=== PATIENT | male | born 1965 | race Caucasian/White ===

== ENCOUNTER → 2020-06-09 | Outpatient (CLI) | payer BC | END | disposition home or self-care (01) | LOC: LABPAT 12:04 | PROVIDERS: ATTEND Student in an Organized Health Care Education/Training Program | DX: Z01.812 Encounter for preprocedural laboratory examination (principal); Z20.822 Contact with and (suspected) exposure to COVID-19; K42.9 Umbilical hernia without obstruction or gangrene; I25.2 Old myocardial infarction; R94.31 Abnormal electrocardiogram [ECG] [EKG] | CPT/HCPCS: 93005; U0003; C9803; U0005 ==

== ENCOUNTER 2020-06-15 09:27 | Day surgery (SDC) | payer BC ==
[2020-06-08 11:32] VITALS: BMI 42.0
[~2020-06-15 09:27] MED LIST: DEXAMETHASONE SOD PHOSPHATE 4 MG/ML 1 ML VIAL IV ONE; HEPARIN SODIUM,PORCINE/PF 5,000 UNIT/0.5 ML SYRINGE SQ PRN; LACTATED RINGERS 1,000 ML IV SCH; LIDOCAINE 1% (10MG/ML) FOR IV START INTRADERMA PRN; METOCLOPRAMIDE 5 MG/ML 2 ML VIAL IVP PRN; SCOPOLAMINE 1.5MG/72HR PATCH TRANSDERM ONE; ceFAZolin 3 GM in SODIUM CHLORIDE 0.9% 100 ML IVPB PRN
[2020-06-15 10:10] LABS: Glucose,Whole Blood 160 mg/dL (75-99)
[2020-06-15] MEDS: ONDANSETRON 4 MG/2 ML VIAL IVP ONE ×2 (10:24→13:07)
[2020-06-15] MEDS ORDERED: MIDAZOLAM 2 MG/2 ML VIAL IVP ONE (10:35)
[2020-06-15] MEDS ORDERED: MIDAZOLAM 2 MG/2 ML VIAL ONE (11:06)
[2020-06-15] MEDS ORDERED: ROPIVACAINE 5 MG/ML 30 ML VIAL ONE (11:06)
[2020-06-15] MEDS ORDERED: ROCURONIUM 10 MG/ML (5 ML VIAL) IV ONE (11:06)
[2020-06-15] MEDS ORDERED: DEXAMETHASONE SOD PHOSPHATE 4 MG/ML 1 ML VIAL ONE (11:06)
[2020-06-15] MEDS ORDERED: GLYCOPYRROLATE 0.2 MG/ML 2 ML VIAL ONE (11:06)
[2020-06-15] MEDS ORDERED: BUPIVACAINE (PF) 0.5% 30 ML VIAL SQ ONE ×4 (11:06→12:19)
[2020-06-15] MEDS ORDERED: KETAMINE 10 MG/ML 20 ML VIAL ONE (11:06)
[2020-06-15] MEDS ORDERED: SUCCINYLCHOLINE CHLORIDE 100 MG/5 ML SYR IV ONE (11:06)
[2020-06-15] MEDS ORDERED: LIDOCAINE 1% INJ 10MG/ML (20 ML MDV) ONE (11:06)
[2020-06-15] MEDS ORDERED: fentaNYL (PF) 50 MCG/ML 2 ML AMP ONE (11:06)
[2020-06-15] MEDS ORDERED: PHENYLEPHRINE-0.9% NACL SYG 1,000 MCG/10 ML SYRINGE ONE (11:06)
[2020-06-15] MEDS ORDERED: KETOROLAC 15 MG/ML 1 ML VIAL ONE (11:06)
[2020-06-15] MEDS ORDERED: NEOSTIGMINE 1 MG/ML 10 ML VIAL ONE (11:06)
[2020-06-15] MEDS ORDERED: PROPOFOL 10 MG/ML 20 ML VIAL IV ONE (11:06)
[2020-06-15 12:45] VITALS: RESP 16; TEMP 97.4
[2020-06-15] MEDS: HYDROmorphone 0.5 MG/0.5 ML SYRINGE IVP PRN ×4 (13:00→13:19)
--- NOTE | 2020-06-15 13:00 | P.ANPRN ---
Procedure Note - Anesthesia - Nerve Block Performed Bilateral Rectus Abdominis Single Time Out Performed: Yes Date of Procedure: 06/15/20 Procedure Start Time: 10:35 Procedure Stop Time: 10:41 Location of Patient: PreOp Indication: Acute Post-Operative Pain, Requested by Surgeon Sedation Type: Sedate with meaningful contact maintained Preparation: Sterile Prep Position: Supine Needle Types: Pajunk Needle Gauge: 21 Ultrasound used to visualize needle placement: Yes Ultrasound used to observe medication spread: Yes Blood Aspirated: No Pain Paresthesia on Injection Noted: No Resistance on Injection: Normal Image Stored and Saved: Yes Events: Uneventful and Well Tolerated (ropi .5% 20cc with dexamethasone 4mg bilaterally)
--- NOTE | 2020-06-15 13:06 | P.OP ---
Date of Procedure: 06/15/20 Preoperative Diagnosis: Recurrent ventral wall hernia Soft tissue mass in the anterior abdominal wall 2 Postoperative Diagnosis: Same Procedure(s) Performed: Robotic repair of recurrent incarcerated ventral hernia and excision of soft tissue mass 2 on the anterior abdominal wall Anesthesia: SHAN Surgeon: Abhi Villareal Estimated Blood Loss (ml): 10 Condition: stable Disposition: PACU Description of Procedure: Patient brought to the operative suite placed in supine position underwent general endotracheal anesthesia per Department of anesthesia timeout performed correct patient correct procedure correct site was verified a 5 mm incision was made at [place] in the left upper quadrant Visiport was used to enter the abdomen an pneumoperitoneum. No injuries were noted the omentum was noted be incarcerated within the ventral wall hernia. 2 more 8 mm ports were placed on the left middle quadrant left lower quadrant. The 5 mm port was upsized to a 12 mm port the robot was docked. The mesh and the 1 Stratta fix suture was placed. The incarcerated omentum was reduced and the defect was closed the defect measured 2 cm. The mesh was tacked to the abdominal wall and sutured circumferentially in place with 3-0 lock sutures. The skeletal frame and the mesh was removed the sutures were removed. The 12 mm port site was closed with 0 Vicryl with the aid of a Huy-Zenon suture passer. The abdomen was desufflated skin incisions were closed with 4-0 Monocryl suture and skin glue. The 2 small subcutaneous soft tissue masses consistent with lipoma were excised approximately 2 cm each on the anterior abdominal wall. These were then closed with 4-0 Monocryl suture. Skin glue. Patient tolerated the procedure well no apparent complications Plan - Discharge Summary Discharge Rx Participant: No New Discharge Prescriptions: No Action Cholecalciferol [Vitamin D3 (25 Mcg = 1000 Iu)] 25 mcg PO DAILY Pioglitazone [Actos] 15 mg PO 1800 Zinc 100 mg PO DAILY metFORMIN HCL [Glucophage] 500 mg PO 1800 glipiZIDE [Glucotrol] 5 mg PO -BRKT Discharge Medication List Cholecalciferol [Vitamin D3 (25 Mcg = 1000 Iu)] 25 mcg PO DAILY 06/08/20 [History] Pioglitazone [Actos] 15 mg PO 1800 06/08/20 [History] Zinc 100 mg PO DAILY 06/08/20 [History] metFORMIN HCL [Glucophage] 500 mg PO 1800 06/08/20 [History] glipiZIDE [Glucotrol] 5 mg PO AC-BRKFST 06/11/20 [History]
[2020-06-15 13:08] LABS: Glucose,Whole Blood 249 mg/dL (75-99)
[2020-06-15] MEDS ORDERED: SODIUM CHLORIDE 0.9% 1,000 ML IV ONE (13:09)
[2020-06-15] MEDS ORDERED: MEPERIDINE 50 MG/ML SYRINGE IVP ONE (13:32)
[2020-06-15] MEDS ORDERED: INSULIN ASPART (NovoLOG) 100 UNIT/ML VIAL SQ ONE (13:40)
[2020-06-15] MEDS ORDERED: HYDROcodone/APAP 5-325MG 1 EACH TAB ONE (14:27)
[2020-06-15 14:41] VITALS: BP 103/67; PULSE 89
== END 2020-06-15 15:09 | disposition home or self-care (01) ==
LOC: OR 09:27
PROVIDERS: ATTEND Student in an Organized Health Care Education/Training Program
DX: K43.0 Incisional hernia with obstruction, without gangrene (principal); D17.1 Benign lipomatous neoplasm of skin and subcutaneous tissue of trunk; E11.9 Type 2 diabetes mellitus without complications; I10 Essential (primary) hypertension; Z82.49 Family history of ischemic heart disease and other diseases of the circulatory system; Z83.3 Family history of diabetes mellitus; Z98.890 Other specified postprocedural states; E07.9 Disorder of thyroid, unspecified; E66.01 Morbid (severe) obesity due to excess calories; Z68.41 Body mass index [BMI] 40.0-44.9, adult; Z79.84 Long term (current) use of oral hypoglycemic drugs
CPT/HCPCS: 22902; 49653; S2900; 64488; 88304

== ENCOUNTER → 2021-01-19 | Outpatient (CLI) | payer BC | END | disposition home or self-care (01) | LOC: LABWHC1 12:37 | PROVIDERS: ATTEND Family Medicine | DX: Z20.828 Contact with and (suspected) exposure to other viral communicable diseases (principal) | CPT/HCPCS: U0003; C9803 ==

== ENCOUNTER 2021-01-26 00:29 | Emergency (ER) | payer BC ==
[2021-01-26 01:01] VITALS: RESP 20
[2021-01-26] MEDS ORDERED: dexAMETHasone 2 MG TAB PO STA (01:26)
--- NOTE | 2021-01-26 02:05 | XR ---
EXAMINATION TYPE: XR chest 2V DATE OF EXAM: 01/26/2021 COMPARISON: 10/22/2014 HISTORY: Trauma. Pain TECHNIQUE: 2 views FINDINGS: There is no heart failure nor confluent pneumonic infiltrate. Costophrenic angles are clear . There is some coarsening of the lung markings at the lung bases. There are no hilar masses. There i s no pneumothorax. Trachea is midline. IMPRESSION: There is some mild interstitial density and subsegmental atelectasis at the lung bases wh ich appears new compared to old exam. Normal heart.
--- NOTE | 2021-01-26 02:33 | ED ---
URI HPI - General Chief Complaint: Upper Respiratory Infection Stated Complaint: covid+/ antibodies Time Seen by Provider: 01/26/21 01:07 Source: patient Mode of arrival: ambulatory Limitations: no limitations - History of Present Illness Initial Comments: 55-year-old male patient presents to the emergency department today requesting monoclonal antibodies after testing positive for COVID-19. States he tested positive on 01/14/21. This started having symptoms approximately a day or 2 prior to that. States that he feels like he is improving however he still report significant cough and becomes fatigued very easily with activity. He was instructed by his physician to come in for the antibody infusion. He does have history of diabetes, takes oral medications. He denies any shortness of breath, sputum production with this cough, or hemoptysis. Denies any nausea or vomiting. States he does have decreased appetite. - Related Data Home Medications Medication Instructions Recorded Confirmed Cholecalciferol [Vitamin D3 (25 25 mcg PO DAILY 06/08/20 06/08/20 Mcg = 1000 Iu)] Pioglitazone [Actos] 15 mg PO 1800 06/08/20 06/08/20 Zinc 100 mg PO DAILY 06/08/20 06/08/20 metFORMIN HCL [Glucophage] 500 mg PO 1800 06/08/20 06/08/20 glipiZIDE [Glucotrol] 5 mg PO AC-BRKFST 06/11/20 06/11/20 Previous Rx's Medication Instructions Recorded Docusate [Colace] 100 mg PO DAILY #10 capsule 06/15/20 HYDROcodone/APAP 5-325MG [[place] 1 tab PO Q6HR PRN 3 Days #12 tab 06/15/20 5-325] Dexamethasone 6 mg PO DAILY #9 tablet 01/26/21 Allergies Allergy/AdvReac Type Severity Reaction Status Date / Time No Known Allergies Allergy Verified 01/26/21 01:00 Review of Systems ROS Statement: Those systems with pertinent positive or pertinent negative responses have been documented in the HPI. ROS Other: All systems not noted in ROS Statement are negative. Past Medical History Past Medical History: Diabetes Mellitus, Hyperlipidemia, Hypertension, Osteoarthritis (OA) Additional Past Medical History / Comment(s): MIGRAINES, "borderline high BP"-no rx, arthritis in hands, History of Any Multi-Drug Resistant Organisms: None Reported Past Surgical History: Hernia Repair, Tonsillectomy Additional Past Surgical History / Comment(s): umbilical hernia repair, sinus polypectomy x2, Past Anesthesia/Blood Transfusion Reactions: Family History of Problems w/ Anesthesia Additional Past Anesthesia/Blood Transfusion Reaction / Comment(s): mother- problems with high BP/breathing problerms Past Psychological History: No Psychological Hx Reported Smoking Status: Never smoker Past Alcohol Use History: None Reported Past Drug Use History: None Reported - Past Family History Father Family Medical History: Cancer General Exam Limitations: no limitations General appearance: alert, in no apparent distress, other (This is a well- developed, well-nourished adult male in no acute distress.) Respiratory exam: Present: normal lung sounds bilaterally. Absent: respiratory distress, wheezes, rales, rhonchi, stridor Cardiovascular Exam: Present: regular rate, normal rhythm, normal heart sounds. Absent: systolic murmur, diastolic murmur, rubs, gallop, clicks GI/Abdominal exam: Present: soft, normal bowel sounds. Absent: distended, tenderness, guarding, rebound, rigid Neurological exam: Present: alert, oriented X3, CN II-XII intact Psychiatric exam: Present: normal affect, normal mood Skin exam: Present: warm, dry, intact, normal color. Absent: rash Course Vital Signs 01/26/21 01/26/21 00:57 02:50 Temperature 98.0 F 97.8 F Pulse Rate 86 82 Respiratory 20 20 Rate Blood Pressure 133/87 150/94 O2 Sat by Pulse 95 98 Oximetry Medical Decision Making - Medical Decision Making 55-year-old male patient presents sent in by his physician for monoclonal antibody infusion. Patient has been symptom positive for the last 12 days. Therefore he is out of range for criteria for the monoclonal antibody infusion. Chest x-ray did show mild interstitial densities in the lower lobes. Oxygen saturation 95% on room air. Other vital signs are normal. He is breathing without difficulty. He'll be put on dexamethasone for his cough. He is discharged to follow-up with his primary care physician for recheck in 1-2 days. Return parameters were discussed in detail. He verbalizes understanding and agrees with this plan. Case discussed with my attending Dr. Hdez. - Radiology Data Radiology results: report reviewed, image reviewed Two-view x-ray of the chest is obtained. Report was reviewed in its entirety. Impression by Dr. Sánchez shows mild interstitial density and subsegmental atelectasis at the lung bases which appears new compared to old exam. Normal heart. Disposition Clinical Impression: COVID-19 Disposition: HOME SELF-CARE Condition: Good Instructions (If sedation given, give patient instructions): Coronavirus Disease 2019 (COVID-19) Additional Instructions: Take medications as directed. Follow up with your primary care physician for recheck in 1-2 days. Return for any new, worsening, or concerning symptoms. Prescriptions: Dexamethasone 6 mg PO DAILY #9 tablet Is patient prescribed a controlled substance at d/c from ED?: No Referrals: Immanuel Clement MD [Primary Care Provider] - 1-2 days Time of Disposition: 02:33
[2021-01-26 03:02] VITALS: BP 150/94; PULSE 82; TEMP 97.8
== END 2021-01-26 02:50 | disposition home or self-care (01) ==
LOC: EC 00:29
DX: U07.1 COVID-19 (principal); E11.9 Type 2 diabetes mellitus without complications; I10 Essential (primary) hypertension; M19.90 Unspecified osteoarthritis, unspecified site; Z79.899 Other long term (current) drug therapy; Z79.84 Long term (current) use of oral hypoglycemic drugs
CPT/HCPCS: 71046; 99283; J8540

== ENCOUNTER 2022-11-08 20:27 | Observation (INO) | payer BC ==
[2022-11-08 20:53] LABS: Basophils # (A) 0.1 k/uL (0-0.2); Basophils % (A) 1 %; Eosinophils # (A) 0.2 k/uL (0-0.7); Eosinophils % (A) 3 %; HGB 13.6 gm/dL (13.0-17.5); Lymphocytes # (A) 1.5 k/uL (1.0-4.8); Lymphocytes % (A) 17 %; MCH 26.6 pg (25.0-35.0); MCHC 32.5 g/dL (31.0-37.0); MCV 82.1 fL (80.0-100.0); Mean Platelet Volume 8.1; Monocytes # (A) 0.6 k/uL (0-1.0); Monocytes % (A) 7 %; Neutrophils # (A) 6.6 k/uL (1.3-7.7); Neutrophils % (A) 72 %; Platelet Count 198 k/uL (150-450); RBC 5.12 m/uL (4.30-5.90); RDW 13.5 % (11.5-15.5); WBC 9.1 k/uL (3.8-10.6)
[2022-11-08 21:01] LABS: INR 1.1 (<1.2); Partial Thromboplastin Time 25.6 sec (22.0-30.0); Prothrombin Time 11.3 sec (9.0-12.0)
[2022-11-08 21:19] LABS: ALT 20 U/L (4-49); AST 23 U/L (17-59); African American GFR (CKD) >90 (>60 ml/min/1.73 sqM); Albumin 3.6 g/dL (3.5-5.0); Alkaline Phosphatase 80 U/L (38-126); Anion Gap 4 mmol/L; Blood Urea Nitrogen 22 mg/dL (9-20); Calcium 9.2 mg/dL (8.4-10.2); Carbon Dioxide 30 mmol/L (22-30); Chloride 101 mmol/L (98-107); Glucose 311 mg/dL (74-99); Non-African American GFR(CKD) >90 (>60 ml/min/1.73 sqM); Potassium 4.5 mmol/L (3.5-5.1); Sodium 135 mmol/L (137-145); Total Bilirubin 1.1 mg/dL (0.2-1.3); Total Protein 6.2 g/dL (6.3-8.2)
--- NOTE | 2022-11-08 21:48 | ED ---
General Adult HPI - General Chief complaint: Shortness of Breath Stated complaint: SOB Time Seen by Provider: 11/08/22 21:23 Source: patient Mode of arrival: wheelchair Limitations: no limitations - History of Present Illness Initial comments: Dictation was produced using [employer] dictation software. please excuse any grammatical, word or spelling errors. Chief Complaint: 57-year-old male presents to the ER for shortness breath History of Present Illness: Patient is a 57-year-old male presents 1 week of shortness of breath. Patient states that shortness of breath is apparent with lying flat and exertion. Denies any chest pain. No abdominal pain he hasn't mild nonproductive cough for last 48 hours. No obvious sick contacts. Patient states he has chronic swelling to the legs. No history of DVT or PE The ROS documented in this emergency department record has been reviewed and confirmed by me. Those systems with pertinent positive or negative responses have been documented in the HPI. All other systems are other negative and/or noncontributory. - Related Data Home Medications Medication Instructions Recorded Confirmed Cholecalciferol [Vitamin D3 (25 25 mcg PO DAILY 06/08/20 06/08/20 Mcg = 1000 Iu)] Pioglitazone [Actos] 15 mg PO 1800 06/08/20 06/08/20 Zinc 100 mg PO DAILY 06/08/20 06/08/20 metFORMIN HCL [Glucophage] 500 mg PO 1800 06/08/20 06/08/20 glipiZIDE [Glucotrol] 5 mg PO AC-BRKFST 06/11/20 06/11/20 Previous Rx's Medication Instructions Recorded Docusate [Colace] 100 mg PO DAILY #10 capsule 06/15/20 HYDROcodone/APAP 5-325MG [[place] 1 tab PO Q6HR PRN 3 Days #12 tab 06/15/20 5-325] dexAMETHasone [Dexamethasone] 6 mg PO DAILY #9 tablet 01/26/21 Allergies Allergy/AdvReac Type Severity Reaction Status Date / Time No Known Allergies Allergy Verified 11/08/22 20:34 Review of Systems ROS Statement: Those systems with pertinent positive or pertinent negative responses have been documented in the HPI. ROS Other: All systems not noted in ROS Statement are negative. Past Medical History Past Medical History: Diabetes Mellitus, Hyperlipidemia, Hypertension, Osteoarthritis (OA) Additional Past Medical History / Comment(s): MIGRAINES, "borderline high BP"-no rx, arthritis in hands, History of Any Multi-Drug Resistant Organisms: None Reported Past Surgical History: Hernia Repair, Tonsillectomy Additional Past Surgical History / Comment(s): umbilical hernia repair, sinus polypectomy x2, Past Anesthesia/Blood Transfusion Reactions: Family History of Problems w/ Anesthesia Additional Past Anesthesia/Blood Transfusion Reaction / Comment(s): mother- problems with high BP/breathing problerms Past Psychological History: No Psychological Hx Reported Smoking Status: Never smoker Past Alcohol Use History: None Reported Past Drug Use History: None Reported - Past Family History Father Family Medical History: Cancer General Exam - General Exam Comments Initial Comments: PHYSICAL EXAM: General Impression: Alert and oriented x3, not in acute distress HEENT: Normocephalic atraumatic, extra-ocular movements intact, pupils equal and reactive to light bilaterally, mucous membranes moist. Cardiovascular: Heart regular rate and rhythm Chest: Able to complete full sentences, no retractions, no tachypnea Abdomen: abdomen soft, non-tender, non-distended, no organomegaly Musculoskeletal: Pulses present and equal in all extremities, no peripheral edema Motor: no focal deficits noted Neurological: CN II-XII grossly intact, no focal motor or sensory deficits noted Skin: Intact with no visualized rashes Psych: Normal affect and mood Limitations: no limitations Course Vital Signs 11/08/22 11/08/22 11/09/22 20:32 23:34 00:10 Temperature 97.8 F Pulse Rate 68 78 80 Respiratory 22 18 18 Rate Blood Pressure 119/76 134/77 124/89 O2 Sat by Pulse 97 99 99 Oximetry EKG Findings - EKG Comments: EKG Findings:: My EKG interpretation: Ventricular rate 80, sinus rhythm,. 154, QRS 133, QTC 421, IV conduction delay. No [place] prolongation, no QTC prolongation, no ST or T-wave changes noted. Overall, this EKG is unremarkable Medical Decision Making - Medical Decision Making Was pt. sent in by a medical professional or institution (, PA, DOCUMENTATION CONSULTANT, urgent care, hospital, or care home...) When possible be specific @ -No Did you speak to anyone other than the patient for history (EMS, parent, family, police, friend...)? What history was obtained from this source @ -No Did you review nursing and triage notes (agree or disagree)? Why? @ -I reviewed and agree with nursing and triage notes Were old charts reviewed (outside hosp., previous admission, EMS record, old EKG, old radiological studies, urgent care reports/EKG's, care home records)? Report findings @ -No old charts were reviewed Differential Diagnosis (chest pain, altered mental status, abdominal pain women, abdominal pain men, vaginal bleeding, musculoskeletal, weakness, fever, dyspnea, syncope, headache, dizziness, GI bleed, back pain, seizure, CVA, palpatations, mental health)? @ -Differential Dyspnea: Coronary syndrome, arrhythmia, tamponade, asthma, COPD, pulmonary embolism, pneumonia, pneumothorax, pulmonary effusion, anaphylaxis, diabetic ketoacidosis, flailed chest, pulmonary contusion, diaphragmatic rupture, anemia, neuromuscular, this is not meant to be an all-inclusive list. EKG interpreted by me (3pts min.). @ -See above X-rays interpreted by me (1pt min.). @ -chest x-ray shows small pleural effusion CT interpreted by me (1pt min.). @ -CT angiography of the chest ordered for elevated d-dimer shows no pulmonary embolism U/S interpreted by me (1pt. min.). @ -None done What testing was considered but not performed or refused? (CT, X-rays, U/S, labs)? Why? @ -None What meds were considered but not given or refused? Why? @ -None Did you discuss the management of the patient with other professionals (professionals i.e. , PA, DOCUMENTATION CONSULTANT, lab, RT, psych nurse, rn social services, pin sorter and bagger, teacher, forward air controller/air officer, outpatient case manager)? Give summary @ -Discussed with hospitalist for admission Was smoking cessation discussed for >3mins.? @ -No Was critical care preformed (if so, how long)? @ -No Were there social determinants of health that impacted care today? How? (Homelessness, low income, unemployed, alcoholism, drug addiction, transportation, low edu. Level, literacy, decrease access to med. care, senior living, rehab)? @ -No Was there de-escalation of care discussed even if they declined (Discuss DNR or withdrawal of care, Hospice)? DNR status @ -No What co-morbidities impacted this encounter? (DM, HTN, Smoking, COPD, CAD, Cancer, CVA, ARF, Chemo, Hep., AIDS, mental health diagnosis, sleep apnea, morbid obesity)? @ -None Was patient admitted / discharged? Hospital course, mention meds given and rout e, prescriptions, significant lab abnormalities, going to OR and other pertinent info. @ -57 Year-old male presents with symptoms suspicious for new onset heart failure. Vital signs stable. Patient is well-appearing no acute distress. Labs shows elevated d-dimer of 0.98. No PE on CT angiography. Brain natruretic peptide elevated at 949 with troponin of 0.0156 asymptomatic for chest pain. Vital testing is negative. Patient given aspirin. There is suspicion of new onset cardiomyopathy. Patient be admitted observation consultation and cardiology. Undiagnosed new problem with uncertain prognosis? @ -No Drug Therapy requiring intensive monitoring for toxicity (Heparin, Nitro, Insulin, Cardizem)? @ -No Were any procedures done? @ -No Diagnosis/symptom? Acute, or Chronic, or Acute on Chronic? Uncomplicated (without systemic symptoms) or Complicated (systemic symptoms)? @ -New onset heart failure Side effects of treatment? @ -No Exacerbation, Progression, or Severe Exacerbation? @ -No Poses a threat to life or bodily function? How? (Chest pain, [place], [place], pneumonia, PE, COPD, DKA, ARF, appy, cholecystitis, CVA, Diverticulitis, Homicidal, Suicidal, threat to staff... and all critical care pts) @ -yes - Lab Data Result diagrams: 11/08/22 20:42 11/08/22 20:42 Lab Results 11/08/22 11/08/22 11/08/22 Range/Units 20:42 20:42 20:42 WBC 9.1 (3.8-10.6) k/uL RBC 5.12 (4.30-5.90) m/uL Hgb 13.6 (13.0-17.5) gm/dL Hct 42.0 (39.0-53.0) % MCV 82.1 (80.0-100.0) fL MCH 26.6 (25.0-35.0) pg MCHC 32.5 (31.0-37.0) g/dL RDW 13.5 (11.5-15.5) % Plt Count 198 (150-450) k/uL MPV 8.1 Neutrophils % 72 % Lymphocytes % 17 % Monocytes % 7 % Eosinophils % 3 % Basophils % 1 % Neutrophils # 6.6 (1.3-7.7) k/uL Lymphocytes # 1.5 (1.0-4.8) k/uL Monocytes # 0.6 (0-1.0) k/uL Eosinophils # 0.2 (0-0.7) k/uL Basophils # 0.1 (0-0.2) k/uL PT 11.3 (9.0-12.0) sec INR 1.1 (<1.2) APTT 25.6 (22.0-30.0) sec D-Dimer (<0.60) mg/L FEU Sodium 135 L (137-145) mmol/L Potassium 4.5 (3.5-5.1) mmol/L Chloride 101 (98-107) mmol/L Carbon Dioxide 30 (22-30) mmol/L Anion Gap 4 mmol/L BUN 22 H (9-20) mg/dL Creatinine 0.74 (0.66-1.25) mg/dL Est GFR (CKD-EPI)AfAm >90 (>60 ml/min/1.73 sqM) Est GFR (CKD-EPI)NonAf >90 (>60 ml/min/1.73 sqM) Glucose 311 H (74-99) mg/dL Calcium 9.2 (8.4-10.2) mg/dL Total Bilirubin 1.1 (0.2-1.3) mg/dL AST 23 (17-59) U/L ALT 20 (4-49) U/L Alkaline Phosphatase 80 (38-126) U/L Troponin I (0.000-0.034) ng/mL NT-Pro-B Natriuret Pep pg/mL Total Protein 6.2 L (6.3-8.2) g/dL Albumin 3.6 (3.5-5.0) g/dL Influenza Type A (PCR) (Not Detectd) Influenza Type B (PCR) (Not Detectd) RSV (PCR) (Not Detectd) SARS-CoV-2 (PCR) (Not Detectd) 11/08/22 11/08/22 11/08/22 Range/Units 20:42 21:55 21:55 WBC (3.8-10.6) k/uL RBC (4.30-5.90) m/uL Hgb (13.0-17.5) gm/dL Hct (39.0-53.0) % MCV (80.0-100.0) fL MCH (25.0-35.0) pg MCHC (31.0-37.0) g/dL RDW (11.5-15.5) % Plt Count (150-450) k/uL MPV Neutrophils % % Lymphocytes % % Monocytes % % Eosinophils % % Basophils % % Neutrophils # (1.3-7.7) k/uL Lymphocytes # (1.0-4.8) k/uL Monocytes # (0-1.0) k/uL Eosinophils # (0-0.7) k/uL Basophils # (0-0.2) k/uL PT (9.0-12.0) sec INR (<1.2) APTT (22.0-30.0) sec D-Dimer 0.98 H (<0.60) mg/L FEU Sodium (137-145) mmol/L Potassium (3.5-5.1) mmol/L Chloride (98-107) mmol/L Carbon Dioxide (22-30) mmol/L Anion Gap mmol/L BUN (9-20) mg/dL Creatinine (0.66-1.25) mg/dL Est GFR (CKD-EPI)AfAm (>60 ml/min/1.73 sqM) Est GFR (CKD-EPI)NonAf (>60 ml/min/1.73 sqM) Glucose (74-99) mg/dL Calcium (8.4-10.2) mg/dL Total Bilirubin (0.2-1.3) mg/dL AST (17-59) U/L ALT (4-49) U/L Alkaline Phosphatase (38-126) U/L Troponin I 0.015 (0.000-0.034) ng/mL NT-Pro-B Natriuret Pep 949 pg/mL Total Protein (6.3-8.2) g/dL Albumin (3.5-5.0) g/dL Influenza Type A (PCR) (Not Detectd) Influenza Type B (PCR) (Not Detectd) RSV (PCR) (Not Detectd) SARS-CoV-2 (PCR) (Not Detectd) 11/08/22 Range/Units 22:36 WBC (3.8-10.6) k/uL RBC (4.30-5.90) m/uL Hgb (13.0-17.5) gm/dL Hct (39.0-53.0) % MCV (80.0-100.0) fL MCH (25.0-35.0) pg MCHC (31.0-37.0) g/dL RDW (11.5-15.5) % Plt Count (150-450) k/uL MPV Neutrophils % % Lymphocytes % % Monocytes % % Eosinophils % % Basophils % % Neutrophils # (1.3-7.7) k/uL Lymphocytes # (1.0-4.8) k/uL Monocytes # (0-1.0) k/uL Eosinophils # (0-0.7) k/uL Basophils # (0-0.2) k/uL PT (9.0-12.0) sec INR (<1.2) APTT (22.0-30.0) sec D-Dimer (<0.60) mg/L FEU Sodium (137-145) mmol/L Potassium (3.5-5.1) mmol/L Chloride (98-107) mmol/L Carbon Dioxide (22-30) mmol/L Anion Gap mmol/L BUN (9-20) mg/dL Creatinine (0.66-1.25) mg/dL Est GFR (CKD-EPI)AfAm (>60 ml/min/1.73 sqM) Est GFR (CKD-EPI)NonAf (>60 ml/min/1.73 sqM) Glucose (74-99) mg/dL Calcium (8.4-10.2) mg/dL Total Bilirubin (0.2-1.3) mg/dL AST (17-59) U/L ALT (4-49) U/L Alkaline Phosphatase (38-126) U/L Troponin I (0.000-0.034) ng/mL NT-Pro-B Natriuret Pep pg/mL Total Protein (6.3-8.2) g/dL Albumin (3.5-5.0) g/dL Influenza Type A (PCR) Not Detected (Not Detectd) Influenza Type B (PCR) Not Detected (Not Detectd) RSV (PCR) Not Detected (Not Detectd) SARS-CoV-2 (PCR) Not Detected (Not Detectd) Disposition Clinical Impression: Congestive heart failure Disposition: ADMITTED IP TO THIS [facility] Condition: Fair Referrals: Lev Clement MD [STAFF PHYSICIAN] - 1-2 days Decision Time: 01:02
--- NOTE | 2022-11-08 22:13 | XR ---
EXAMINATION TYPE: XR chest 2V DATE OF EXAM: 11/08/2022 COMPARISON: 01/26/2021 INDICATION: Difficulty breathing TECHNIQUE: Frontal and lateral views of the chest are obtained. FINDINGS: The heart size is normal. The pulmonary vasculature is normal. Minimal bibasilar infiltrates are present. Correlate for subsegmental atelectasis. Small posterior pl eural effusion is present. Follow-up can be performed as clinically indicated.. IMPRESSION: 1. Small posterior pleural effusion with mild subsegmental atelectasis bilateral lung bases.
--- NOTE | 2022-11-08 23:29 | CT ---
EXAM: CT Angiography Chest With Intravenous Contrast CLINICAL HISTORY: ITS.REASON CT Reason: positive D-dimer TECHNIQUE: Axial computed tomographic angiography images of the chest with intravenous contrast. CTDI is 41.28 mGy and DLP is 1239.4 mGy-cm. This CT exam was performed using one or more of the following dose reduction techniques: automated exposure control, adjustment of the mA and/or kV according to patient size, and/or use of iterative reconstruction technique. MIP reconstructed images were created and reviewed. COMPARISON: No relevant prior studies available. FINDINGS: Pulmonary arteries: Unremarkable. No acute pulmonary embolism. Aorta: No acute findings. No thoracic aortic aneurysm. Lungs: Unremarkable. No mass. No consolidation. Pleural space: Small bilateral pleural effusions. No pneumothorax. Heart: Mild cardiomegaly. No significant pericardial effusion. No evidence of RV dysfunction. Bones/joints: No acute fracture. No dislocation. Soft tissues: Unremarkable. Lymph nodes: Unremarkable. No enlarged lymph nodes. Liver: Hepatic steatosis. Gallbladder and bile ducts: Mild wall thickening of the gallbladder. IMPRESSION: 1. No acute pulmonary embolism. 2. Small bilateral pleural effusions. 3. Hepatic steatosis.
[2022-11-09] MEDS ORDERED: NALOXONE 0.4 MG/ML 1 ML VIAL IV PRN (00:57)
[2022-11-09] MEDS ORDERED: ASPIRIN 81 MG PO STA (01:02)
[2022-11-09] MEDS: SODIUM CHLORIDE 0.9% 1,000 ML IV SCH (01:13)
[2022-11-09] MEDS ORDERED: DEXTROSE 50% SYRINGE 50 ML IVP PRN ×2 (09:50)
[2022-11-09] MEDS: metFORMIN 500 MG TAB PO SCH (10:12)
[2022-11-09 12:13] LABS: Glucose,Whole Blood 219 mg/dL (70-110)
[2022-11-09] MEDS: INSULIN ASPART (NovoLOG) 100 UNIT/ML VIAL SQ SCH ×3 (12:36→21:42)
--- NOTE | 2022-11-09 12:47 | P.HPIM ---
History of Present Illness H&P Date: 11/09/22 Chief Complaint: Shortness of breath * 57-year-old gentleman with past medical history significant for diabetes mellitus type 2, hypertension, hyperlipidemia presented to the emergency department with complaints of ongoing shortness of breath * Patient states her symptom onset has been for for the last 1 week. Patient has been complaining of exertional shortness of breath. He denied chest pain, denies fever, chills, chest nausea, vomiting abdominal pain * Review of blood work in ER included normal CBC, d-dimer 0.98, CT chest done negative for pulmonary embolism * Serum chemistry showed sodium 135 potassium 4.5 BUN 22 creatinine 0.74 blood glucose 311 * Patient tested negative for Covid, influenza * N-terminal proBNP 949 * EKG obtained in ER showed sinus rhythm nonspecific ST segment changes * Patient to be admitted to medical floor and workup initiated including serial troponins and echocardiogram and cardiology consult REVIEW OF SYSTEMS: Shortness of breath CONSTITUTIONAL: No fever, no malaise, no fatigue. HEENT: No recent visual problems or hearing problems. Denied any sore throat. CARDIOVASCULAR: No chest pain, orthopnea, PND, no palpitations, no syncope. PULMONARY: No shortness of breath, no cough, no hemoptysis. GASTROINTESTINAL: No diarrhea, no nausea, no vomiting, no abdominal pain. NEUROLOGICAL: No headaches, no weakness, no numbness. HEMATOLOGICAL: Denies any bleeding or petechiae. GENITOURINARY: Denies any burning micturition, frequency, or urgency. MUSCULOSKELETAL/RHEUMATOLOGICAL: Denies any joint pain, swelling, or any muscle pain. ENDOCRINE: Denies any polyuria or polydipsia. PHYSICAL EXAMINATION: GENERAL: The patient is alert and oriented x3, not in any acute distress. Well developed, well nourished. HEENT: Pupils are round and equally reacting to light. EOMI. No scleral icterus. No conjunctival pallor. Normocephalic, atraumatic. No pharyngeal erythema. No thyromegaly. CARDIOVASCULAR: S1 and S2 present. No murmurs, rubs, or gallops. Bilateral leg edema PULMONARY: Chest is clear to auscultation, no wheezing or crackles. ABDOMEN: Soft, nontender, nondistended, normoactive bowel sounds. No palpable organomegaly. MUSCULOSKELETAL: No joint swelling or deformity. EXTREMITIES: No cyanosis, clubbing, or pedal edema. NEUROLOGICAL: Gross neurological examination did not reveal any focal deficits. SKIN: No rashes. Past Medical History Past Medical History: Diabetes Mellitus, Hyperlipidemia, Hypertension, Osteoarthritis (OA) Additional Past Medical History / Comment(s): MIGRAINES, "borderline high BP"-no rx, arthritis in hands, History of Any Multi-Drug Resistant Organisms: None Reported Past Surgical History: Hernia Repair, Tonsillectomy Additional Past Surgical History / Comment(s): umbilical hernia repair, sinus polypectomy x2, Past Anesthesia/Blood Transfusion Reactions: Family History of Problems w/ Anesthesia Additional Past Anesthesia/Blood Transfusion Reaction / Comment(s): mother- problems with high BP/breathing problerms Past Psychological History: No Psychological Hx Reported Smoking Status: Never smoker Past Alcohol Use History: None Reported Past Drug Use History: None Reported - Past Family History Father Family Medical History: Cancer Medications and Allergies Home Medications Medication Instructions Recorded Confirmed Type Pioglitazone [Actos] 15 mg PO DIRECTED 11/09/22 11/09/22 History glipiZIDE [Glucotrol] 5 mg PO DIRECTED 11/09/22 11/09/22 History metFORMIN HCL [Glucophage] 500 mg PO DIRECTED 11/09/22 11/09/22 History Allergies Allergy/AdvReac Type Severity Reaction Status Date / Time No Known Allergies Allergy Verified 11/08/22 20:34 Physical Exam Vitals: Vital Signs Temp Pulse Resp BP Pulse Ox 11/09/22 07:50 72 18 135/91 98 11/09/22 01:16 66 18 127/87 95 11/09/22 00:10 80 18 124/89 99 11/08/22 23:34 78 18 134/77 99 11/08/22 20:32 97.8 F 68 22 119/76 97 Intake and Output 11/08/22 11/09/22 11/09/22 22:59 06:59 14:59 Other: Weight 138.346 kg Results CBC & Chem 7: 11/08/22 20:42 11/08/22 20:42 Labs: Abnormal Lab Results - Last 24 Hours (Table) 11/08/22 11/08/22 Range/Units 20:42 21:55 D-Dimer 0.98 H (<0.60) mg/L FEU Sodium 135 L (137-145) mmol/L BUN 22 H (9-20) mg/dL Glucose 311 H (74-99) mg/dL Total Protein 6.2 L (6.3-8.2) g/dL Assessment and Plan Assessment: Assessment and plan * Shortness of breath rule out ACS versus new onset CHF * Diabetes mellitus type 2 * Morbid obesity * Consult obtained from cardiology * Serial troponins ordered, echocardiogram ordered * CT chest negative for pulmonary embolism * In regards to diabetes, Accu-Cheks before meals at bedtime continue metformin, correctional insulin ordered * CODE STATUS is full code
[2022-11-09 17:26] LABS: Glucose,Whole Blood 251 mg/dL (70-110)
[2022-11-09 20:47] LABS: Glucose,Whole Blood 232 mg/dL (70-110)
[2022-11-10] MEDS: SODIUM CHLORIDE 0.9% 1,000 ML IV SCH ×2 (01:19→23:46)
[2022-11-10 06:36] LABS: Glucose,Whole Blood 179 mg/dL (70-110)
[2022-11-10] MEDS: INSULIN ASPART (NovoLOG) 100 UNIT/ML VIAL SQ SCH ×4 (06:39→20:54)
--- NOTE | 2022-11-10 07:34 | CA ---
Transthoracic Echo Report Name: Carlo Mccormack Age: 57 Gender: M : 1965 Exam Date: 11/09/2022 14:21 Exam Location: [place] [facility] Ht (in): 71 Wt (lb): 305 Ordering Physician: Jo-Ann Ruelas MD Attending/Referring Phys: Puppet Maker Jesi Valles [facility] Procedure CPT: Indications: Heart failure Cardiac Hx: Technical Quality: Technically difficult study Contrast 1: Lumason Total Dose (mL): 5 Contrast 2: Total Dose (mL): MEASUREMENTS (Male / Female) Normal Values 2D ECHO LV Diastolic Diameter PLAX 6.6 cm 4.2 - 5.9 / 3.9 - 5.3 cm LV Systolic Diameter PLAX 5.9 cm IVS Diastolic Thickness 0.8 cm 0.6 - 1.0 / 0.6 - 0.9 cm LVPW Diastolic Thickness 0.9 cm 0.6 - 1.0 / 0.6 - 0.9 cm LV Relative Wall Thickness 0.3 LVOT Diameter 2.0 cm Ascending Aorta Diameter 3.4 cm M-MODE Aortic Root Diameter MM 2.3 cm LA Systolic Diameter MM 5.4 cm LA Ao Ratio MM 2.4 AV Cusp Separation MM 2.1 cm DOPPLER AV Peak Velocity 143.3 cm/s AV Peak Gradient 8.2 mmHg AV Mean Velocity 99.5 cm/s AV Mean Gradient 4.4 mmHg AV Velocity Time Integral 25.7 cm LVOT Peak Velocity 111.3 cm/s LVOT Peak Gradient 5.0 mmHg LVOT Velocity Time Integral 17.9 cm LVOT Stroke Volume 58.6 cm??? LVOT Stroke Volume Index 23.2 ml/m??? LVOT Cardiac Index 1825.7 cm???/min???m??? AV Area Cont Eq vti 2.3 cm??? AV Area Cont Eq pk 2.5 cm??? MV Peak Velocity 132.0 cm/s MV Peak Gradient 7.0 mmHg MV Mean Velocity 83.6 cm/s MV Mean Gradient 3.3 mmHg MV Velocity Time Integral 33.2 cm MR Peak Velocity 506.5 cm/s MR Peak Gradient 102.6 mmHg Mitral E Point Velocity 110.7 cm/s Mitral A Point Velocity 55.4 cm/s Mitral E to A Ratio 2.0 MV Deceleration Time 143.7 ms LV E' Lateral Velocity 11.2 cm/s Mitral E to LV E' Lateral Ratio 9.9 LV E' Septal Velocity 5.1 cm/s Mitral E to LV E' Septal Ratio 21.9 TR Peak Velocity 414.8 cm/s TR Peak Gradient 68.8 mmHg Right Atrial Pressure 15.0 mmHg Pulmonary Artery Systolic Pressu 83.8 mmHg Right Ventricular Systolic Press 73.8 mmHg FINDINGS Left Ventricle Severely reduced global left ventricular systolic function. Estimated ejection fraction 25-30 %. Dilated left ventricle Right Ventricle Severe right ventricular dilatation. Mildly reduced right ventricular global systolic function. Severe pulmonary hypertension. Right Atrium Severe right atrial dilatation. Left Atrium Severe left atrial dilatation. Mitral Valve Structurally normal mitral valve. Severe mitral regurgitation. Aortic Valve Trileaflet aortic valve. Mild aortic regurgitation. Tricuspid Valve Tricuspid valve not well visualized. [id number] tricuspid regurgitation. Pulmonic Valve Pulmonic valve not well visualized. Pericardium No pericardial effusion. Aorta Normal size aortic root and proximal ascending aorta. CONCLUSIONS 1. Dilated left ventricle with severe global hypokinesis 2. Severe mitral with [id number] tricuspid regurgitation 3. Severe pulmonary hypertension 4. Mild aortic regurgitation Previewed by: Dr. Gilmar Daigle MD (Electronically Signed) Final Date: 10 November 2022 07:33
[2022-11-10] MEDS: metFORMIN 500 MG TAB PO SCH (07:39)
[2022-11-10] MEDS: FUROSEMIDE 40 MG TAB PO SCH (08:06)
[2022-11-10 08:51] LABS: BUN/Creat Ratio 18.22 Ratio (12.00-20.00); Blood Urea Nitrogen 16.4 mg/dL (9.0-27.0); Calcium 9.2 mg/dL (8.7-10.3); Carbon Dioxide 29.6 mmol/L (21.6-31.8); Chloride 100 mmol/L (96-109); Glucose 198 mg/dL (70-110); Potassium 4.3 mmol/L (3.5-5.5); Sodium 139 mmol/L (135-145)
[2022-11-10 08:58] LABS: HGB 14.1 d/dL (13.0-17.0); MCH 26.1 pg (27.0-32.0); MCV 81.5 FL (80.0-97.0); Mean Platelet Volume 10.9 FL (9.5-12.2); NRBC Per 100 WBC 0 X 10*3/uL (0.00-0.01); Platelet Count 248 X 10*3/uL (140-440); RDW 13.4 % (11.5-14.5); WBC 9.73 X 10*3/uL (4.50-10.00)
[2022-11-10] MEDS ORDERED: FUROSEMIDE 10 MG/ML 4 ML VIAL IV STA (10:50)
[2022-11-10] MEDS: ASPIRIN 81 MG PO SCH (10:57)
[2022-11-10] MEDS: SACUBITRIL/VALSARTAN 24 MG-26 MG TABLET PO SCH ×2 (10:57→20:30)
[2022-11-10] MEDS: DAPAGLIFLOZIN PROPANEDIOL 10 MG TABLET PO SCH (10:57)
[2022-11-10] MEDS: METOPROLOL SUCCINATE (ER) 25 MG TAB.ER.24H PO SCH (10:57)
--- NOTE | 2022-11-10 10:57 | P.CRDCN ---
History of Present Illness History of present illness: HISTORY OF PRESENT ILLNESS: This is a 57-year-old male with a past medical history significant for borderline hypertension, hyperlipidemia, and diabetes. 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 We have been asked to see the patient in consultation for shortness of breath and CHF. Patient examined at the bedside. Patient states about 3 weeks ago he began to have shortness of breath while at work. He states he works out a worn alexandra plan and walks quite a bit at work. He states about 3 weeks ago he was feeling mild shortness of breath with walking. However over the past few days it has worsened. He states he has had to take multiple breaks after walking to catch his breath. He denied having any chest pain or pressure. He does report lower extremity edema although he states this has been chronic for a long time. Patient is a nonsmoker. He denies any alcohol use. He denies any drug use. He states he has a family history of coronary artery disease in his dad had a myocardial infarction when he was in his 50s. The patient denies any recent infection. He reports he had Covid approximately 2 years ago. * EKG reveals sinus mechanism with PVCs. No signs of acute ischemia. * Chest xray small posterior pleural effusion with mild subsegmental atelectasis bilateral lung bases * Chest CT: Negative for pulmonary embolism. Small bilateral pleural effusions. * Laboratory data: W BC 9.1. Hemoglobin 13.6. Platelet count 198. D-dimer 0.98. Sodium 139. Potassium 4.3. BUN 16. Creatinine 0.9. Troponin negative 3. ProBNP 949. * Current home cardiac medications include none * Echocardiogram obtained reveals dilated left ventricle with severe global hypokinesis. Ejection fraction 25-30%. Severe mitral regurgitation. Mild to moderate tricuspid regurgitation. Severe pulmonary hypertension. Mild aortic regurgitation. REVIEW OF SYSTEMS: At the time of my exam: CONSTITUTIONAL: Denies fever or chills. HEENT: Denies blurred vision, vision changes, or eye pain. Denies hemoptysis CARDIOVASCULAR: Denies chest pain. Denies orthopnea. Denies PND. Denies palpitations RESPIRATORY: Denies shortness of breath. GASTROINTESTINAL: Denies abdominal pain. Denies nausea or vomiting. HEMATOLOGIC: Denies bleeding disorders. GENITOURINARY: Denies any blood in urine. SKIN: Denies pruitis. Denies rash. PHYSICAL EXAM: VITAL SIGNS: Reviewed. GENERAL: Well-developed in no acute distress. HEENT: Head is normocephalic. Pupils are equal, round. Sclerae anicteric. Mucous membranes of the mouth are moist. Neck supple. No JVD or thyromegaly LUNGS: Respirations even and unlabored. Lungs essentially clear to auscultation bilaterally. HEART: Regular rate and rhythm. S1 and S2 heard. Systolic murmur noted at the apex ABDOMEN: Soft. Nondistended. Nontender. EXTREMITIES: Normal range of motion. No clubbing or cyanosis. Peripheral pulses intact. 2+ bilateral nonpitting lower extremity edema NEUROLOGIC: Awake and alert. Oriented x 3. ASSESSMENT: Shortness of breath Acute heart failure with reduced ejection fraction, 25-30% New-onset cardiomyopathy, ischemic versus nonischemic Severe mitral regurgitation Severe pulmonary hypertension Hypertension, borderline per patient Hyperlipidemia Diabetes, uncontrolled, hemoglobin A1c 10.6 Morbid obesity: BMI 42.8 PLAN: Add aspirin 81 mg daily, atorvastatin 40 mg at night, farxiga 10mg daily, metoprolol succinate 25 mg daily, and Entresto 24-26mg BID Give 1 dose of IV lasix 40mg now and then continue oral lasix Patient will require cardiac catherization to rule out CAD and AMANDA to evaluate mitral valve. Timing to be determined but may be performed on an outpatient basis. Further recommendations pending patient course Nurse practitioner note has been reviewed by physician. Signing provider agrees with the documented findings, assessment, and plan of care. Past Medical History Past Medical History: Diabetes Mellitus, Hyperlipidemia, Hypertension, Osteoarthritis (OA) Additional Past Medical History / Comment(s): MIGRAINES, "borderline high BP"-no rx, arthritis in hands, History of Any Multi-Drug Resistant Organisms: None Reported Past Surgical History: Hernia Repair, Tonsillectomy Additional Past Surgical History / Comment(s): umbilical hernia repair, sinus polypectomy x2, Past Anesthesia/Blood Transfusion Reactions: Family History of Problems w/ Anesthesia Additional Past Anesthesia/Blood Transfusion Reaction / Comment(s): mother- problems with high BP/breathing problerms Past Psychological History: No Psychological Hx Reported Smoking Status: Never smoker Past Alcohol Use History: None Reported Past Drug Use History: None Reported - Past Family History Father Family Medical History: Cancer Medications and Allergies Home Medications Medication Instructions Recorded Confirmed Type Pioglitazone [Actos] 15 mg PO DIRECTED 11/09/22 11/09/22 History glipiZIDE [Glucotrol] 5 mg PO DIRECTED 11/09/22 11/09/22 History metFORMIN HCL [Glucophage] 500 mg PO DIRECTED 11/09/22 11/09/22 History Allergies Allergy/AdvReac Type Severity Reaction Status Date / Time No Known Allergies Allergy Verified 11/08/22 20:34 Physical Exam Vitals: Vital Signs Temp Pulse Pulse Resp BP BP Pulse Ox 11/10/22 02:33 98.3 F 82 16 146/76 95 11/09/22 19:51 97.9 F 81 15 145/75 94 L 11/09/22 15:45 98.2 F 83 16 127/77 97 11/09/22 15:27 80 18 138/91 98 11/09/22 12:44 74 18 132/93 97 Intake and Output 11/09/22 11/10/22 11/10/22 22:59 06:59 14:59 Intake Total 442 Balance 442 Intake: Oral 442 Other: # Voids 1 2 Weight 138.346 kg 139.3 kg Results 11/10/22 05:47 11/10/22 05:47 Cardiac Enzymes 11/09/22 11/09/22 Range/Units 11:06 14:06 Troponin I 0.014 0.013 (0.000-0.034) ng/mL Current Medications Generic Name Dose Route Start Last Admin Trade Name Freq PRN Reason Stop Dose Admin Dextrose/Water 25 ml 11/09/22 09:50 Dextrose 50% Syringe 50 Ml IVP PER PROTOCOL PRN Hypoglycemia Protocol Dextrose/Water 50 ml 11/09/22 09:50 Dextrose 50% Syringe 50 Ml IVP PER PROTOCOL PRN Hypoglycemia Protocol Furosemide 40 mg 11/10/22 09:00 11/10/22 08:06 Furosemide 40 Mg Tab PO 40 mg DAILY [place] Administration Sodium Chloride 1,000 mls @ 20 mls/hr 11/09/22 01:00 11/10/22 01:19 Saline 0.9% IV Not Given .Q24H [place] Insulin Aspart 0 unit 11/09/22 12:30 11/10/22 06:39 Insulin Aspart (Novolog) 100 Unit/Ml Vial SQ 1 unit ACHS [place] Administration Protocol Metformin HCl 500 mg 11/09/22 10:00 11/10/22 07:39 Metformin 500 Mg Tab PO Not Given DAILY [place] Naloxone HCl 0.2 mg 11/09/22 00:57 Naloxone 0.4 Mg/Ml 1 Ml Vial IV Q2M PRN Opioid Reversal Intake and Output 11/09/22 11/10/22 11/10/22 22:59 06:59 14:59 Intake Total 442 Balance 442 Intake: Oral 442 Other: # Voids 1 2 Weight 138.346 kg 139.3 kg 11/08/22 20:42 11/08/22 20:42
[2022-11-10 12:42] LABS: Glucose,Whole Blood 217 mg/dL (70-110)
[2022-11-10 15:33] VITALS: BMI 42.8
[2022-11-10 16:03] LABS: Chol/HDL Ratio 5.71 Ratio; LDL Cholesterol,Calculated 105.5 mg/dL (0.0-131.0)
[2022-11-10 17:12] LABS: Glucose,Whole Blood 249 mg/dL (70-110)
[2022-11-10 20:35] LABS: Glucose,Whole Blood 297 mg/dL (70-110)
[2022-11-10] MEDS ORDERED: ATORVASTATIN 40 MG TAB PO SCH (21:00)
[2022-11-11 06:06] LABS: Glucose,Whole Blood 212 mg/dL (70-110)
[2022-11-11] MEDS: INSULIN ASPART (NovoLOG) 100 UNIT/ML VIAL SQ SCH ×2 (06:07→13:31)
[2022-11-11 07:47] VITALS: BP 130/81; PULSE 62; RESP 16; TEMP 98
[2022-11-11 08:46] LABS: African American GFR (CKD) >90 (>60 ml/min/1.73 sqM); Anion Gap 5 mmol/L; Blood Urea Nitrogen 24 mg/dL (9-20); Calcium 9.5 mg/dL (8.4-10.2); Carbon Dioxide 30 mmol/L (22-30); Chloride 102 mmol/L (98-107); Glucose 190 mg/dL (74-99); Non-African American GFR(CKD) >90 (>60 ml/min/1.73 sqM); Potassium 4.4 mmol/L (3.5-5.1); Sodium 137 mmol/L (137-145)
[2022-11-11] MEDS: metFORMIN 500 MG TAB PO SCH (09:46)
[2022-11-11] MEDS: ASPIRIN 81 MG PO SCH (09:46)
[2022-11-11] MEDS: DAPAGLIFLOZIN PROPANEDIOL 10 MG TABLET PO SCH (09:46)
[2022-11-11] MEDS: FUROSEMIDE 40 MG TAB PO SCH (09:46)
[2022-11-11] MEDS: SACUBITRIL/VALSARTAN 24 MG-26 MG TABLET PO SCH (09:46)
[2022-11-11] MEDS: METOPROLOL SUCCINATE (ER) 25 MG TAB.ER.24H PO SCH (09:46)
[2022-11-11 13:27] LABS: Glucose,Whole Blood 250 mg/dL (70-110)
--- NOTE | 2022-11-11 14:44 | P.PN ---
Subjective Progress Note Date: 11/10/22 * 57-year-old gentleman with past medical history significant for diabetes mellitus type 2, hypertension, hyperlipidemia presented to the emergency department with complaints of ongoing shortness of breath * Patient states her symptom onset has been for for the last 1 week. Patient has been complaining of exertional shortness of breath. He denied chest pain, denies fever, chills, chest nausea, vomiting abdominal pain * Review of blood work in ER included normal CBC, d-dimer 0.98, CT chest done negative for pulmonary embolism * Serum chemistry showed sodium 135 potassium 4.5 BUN 22 creatinine 0.74 blood glucose 311 * Patient tested negative for Covid, influenza * N-terminal proBNP 949 * EKG obtained in ER showed sinus rhythm nonspecific ST segment changes * Patient to be admitted to medical floor and workup initiated including serial troponins and echocardiogram and cardiology consult Objective - Vital Signs Vital signs: Vital Signs Temp 97.6 F 11/10/22 07:00 Pulse 84 11/10/22 07:00 Resp 22 11/10/22 07:00 BP 130/83 11/10/22 07:00 Pulse Ox 93 L 11/10/22 07:00 FiO2 Intake & Output 11/09/22 11/10/22 11/10/22 18:59 06:59 18:59 Intake Total 442 Balance 442 Weight 138.346 kg 139.3 kg 139.3 kg Intake: Oral 442 Other: # Voids 2 - Exam PHYSICAL EXAMINATION: GENERAL: The patient is alert and oriented x3, not in any acute distress. Well developed, well nourished. HEENT: Pupils are round and equally reacting to light. EOMI. No scleral icterus. No conjunctival pallor. Normocephalic, atraumatic. No pharyngeal erythema. No thyromegaly. CARDIOVASCULAR: S1 and S2 present. No murmurs, rubs, or gallops. PULMONARY: Chest is clear to auscultation, no wheezing or crackles. ABDOMEN: Soft, nontender, nondistended, normoactive bowel sounds. No palpable organomegaly. MUSCULOSKELETAL: No joint swelling or deformity. EXTREMITIES: No cyanosis, clubbing, or pedal edema. NEUROLOGICAL: Gross neurological examination did not reveal any focal deficits. SKIN: No rashes. - Labs CBC & Chem 7: 11/10/22 05:47 11/11/22 07:59 Labs: Abnormal Lab Results - Last 24 Hours (Table) 11/09/22 11/09/22 11/10/22 Range/Units 17:25 20:46 05:47 MCH (27.0-32.0) pg Glucose (70-110) mg/dL POC Glucose (mg/dL) 251 H 232 H (70-110) mg/dL Hemoglobin A1c 10.6 H (<=6.0) % 11/10/22 11/10/22 11/10/22 Range/Units 05:47 05:47 06:34 MCH 26.1 L (27.0-32.0) pg Glucose 198 H (70-110) mg/dL POC Glucose (mg/dL) 179 H (70-110) mg/dL Hemoglobin A1c (<=6.0) % 11/10/22 Range/Units 12:32 MCH (27.0-32.0) pg Glucose (70-110) mg/dL POC Glucose (mg/dL) 217 H (70-110) mg/dL Hemoglobin A1c (<=6.0) % Assessment and Plan Assessment: Assessment and plan Shortness of breath rule out ACS versus new onset CHF Diabetes mellitus type 2 Morbid obesity Consult obtained from cardiology Serial troponins ordered, echocardiogram ordered CT chest negative for pulmonary embolism In regards to diabetes, Accu-Cheks before meals at bedtime continue metformin, correctional insulin ordered CODE STATUS is full code
--- NOTE | 2022-11-11 17:28 | P.PN ---
Subjective Progress Note Date: 11/11/22 Subjective: Patient is doing well. He appears to be euvolemic He walked in the hallway without any limitations or shortness of breath. His renal function has been stable and his blood pressure stable with introduction of guideline directed medical therapy HISTORY OF PRESENT ILLNESS: This is a 57-year-old male with a past medical history significant for borderline hypertension, hyperlipidemia, and diabetes. 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 We have been asked to see the patient in consultation for shortness of breath and CHF. Patient examined at the bedside. Patient states about 3 weeks ago he began to have shortness of breath while at work. He states he works out a worn alexandra plan and walks quite a bit at work. He states about 3 weeks ago he was feeling mild shortness of breath with walking. However over the past few days it has worsened. He states he has had to take multiple breaks after walking to catch his breath. He denied having any chest pain or pressure. He does report lower extremity edema although he states this has been chronic for a long time. Patient is a nonsmoker. He denies any alcohol use. He denies any drug use. He states he has a family history of coronary artery disease in his dad had a myocardial infarction when he was in his 50s. The patient denies any recent infection. He reports he had Covid approximately 2 years ago. * EKG reveals sinus mechanism with PVCs. No signs of acute ischemia. * Chest xray small posterior pleural effusion with mild subsegmental atelectasis bilateral lung bases * Chest CT: Negative for pulmonary embolism. Small bilateral pleural effusions. * Laboratory data: W BC 9.1. Hemoglobin 13.6. Platelet count 198. D-dimer 0.98. Sodium 139. Potassium 4.3. BUN 16. Creatinine 0.9. Troponin negative 3. ProBNP 949. * Current home cardiac medications include none * Echocardiogram obtained reveals dilated left ventricle with severe global hypokinesis. Ejection fraction 25-30%. Severe mitral regurgitation. Mild to moderate tricuspid regurgitation. Severe pulmonary hypertension. Mild aortic regurgitation. REVIEW OF SYSTEMS: At the time of my exam: CONSTITUTIONAL: Denies fever or chills. HEENT: Denies blurred vision, vision changes, or eye pain. Denies hemoptysis CARDIOVASCULAR: Denies chest pain. Denies orthopnea. Denies PND. Denies pa lpitations RESPIRATORY: Denies shortness of breath. GASTROINTESTINAL: Denies abdominal pain. Denies nausea or vomiting. HEMATOLOGIC: Denies bleeding disorders. GENITOURINARY: Denies any blood in urine. SKIN: Denies pruitis. Denies rash. PHYSICAL EXAM: VITAL SIGNS: Reviewed. GENERAL: Well-developed in no acute distress. HEENT: Head is normocephalic. Pupils are equal, round. Sclerae anicteric. Mucous membranes of the mouth are moist. Neck supple. No JVD or thyromegaly LUNGS: Respirations even and unlabored. Lungs essentially clear to auscultation bilaterally. HEART: Regular rate and rhythm. S1 and S2 heard. Systolic murmur noted at the apex ABDOMEN: Soft. Nondistended. Nontender. EXTREMITIES: Normal range of motion. No clubbing or cyanosis. Peripheral pulses intact. 2+ bilateral nonpitting lower extremity edema NEUROLOGIC: Awake and alert. Oriented x 3. ASSESSMENT: Shortness of breath Acute heart failure with reduced ejection fraction, 25-30% New-onset cardiomyopathy, ischemic versus nonischemic Severe mitral regurgitation Severe pulmonary hypertension Hypertension, borderline per patient Hyperlipidemia Diabetes, uncontrolled, hemoglobin A1c 10.6 Morbid obesity: BMI 42.8 PLAN: Add aspirin 81 mg daily, atorvastatin 40 mg at night, farxiga 10mg daily, metoprolol succinate 25 mg daily, and Entresto 24-26mg BID Give 1 dose of IV lasix 40mg now and then continue oral lasix Patient needs outpatient follow-up with Dr. Daigle and set up for AMANDA to evaluate severe mitral regurgitation and left and right heart catheterization Objective - Vital Signs Vital signs: Vital Signs Temp 98.0 F 11/11/22 07:00 Pulse 62 11/11/22 07:00 Resp 16 11/11/22 07:00 BP 130/81 11/11/22 07:00 Pulse Ox 93 L 11/11/22 07:00 FiO2 Intake & Output 11/10/22 11/11/22 11/11/22 18:59 06:59 18:59 Intake Total 118 410 Output Total 2185 1700 900 Balance -6197 -1704 -747 Weight 139.3 kg 134.2 kg 133.9 kg Intake: Oral 118 410 Output: Urine 2181 1700 900 Other: Voiding Method Urinal - Labs CBC & Chem 7: 11/10/22 05:47 11/11/22 07:59 Labs: Abnormal Lab Results - Last 24 Hours (Table) 11/10/22 11/11/22 11/11/22 Range/Units 20:34 06:01 07:59 BUN 24 H (9-20) mg/dL Glucose 190 H (74-99) mg/dL POC Glucose (mg/dL) 297 H 212 H (70-110) mg/dL 11/11/22 Range/Units 13:25 BUN (9-20) mg/dL Glucose (74-99) mg/dL POC Glucose (mg/dL) 250 H (70-110) mg/dL
--- NOTE | 2022-11-11 19:12 | P.DS ---
Providers Date of admission: 11/09/22 01:05 Expected date of discharge: 11/11/22 Attending physician: Christiane Cannon Consults: 11/09/22 00:57 Consult Physician Routine Consulting Provider: Mart Boykin Consult Reason/Comments: heart failure, new onset Do you want consulting provider notified?: Yes Primary care physician: [facility] Course: * 57-year-old gentleman with past medical history significant for diabetes mellitus type 2, hypertension, hyperlipidemia presented to the emergency department with complaints of ongoing shortness of breath * Patient states her symptom onset has been for for the last 1 week. Patient has been complaining of exertional shortness of breath. He denied chest pain, denies fever, chills, chest nausea, vomiting abdominal pain * Review of blood work in ER included normal CBC, d-dimer 0.98, CT chest done negative for pulmonary embolism * Serum chemistry showed sodium 135 potassium 4.5 BUN 22 creatinine 0.74 blood glucose 311 * Patient tested negative for Covid, influenza * N-terminal proBNP 949 * EKG obtained in ER showed sinus rhythm nonspecific ST segment changes * Patient to be admitted to medical floor and workup initiated including serial troponins and echocardiogram and cardiology consult * Shortness of breath rule out ACS versus new onset CHF Diabetes mellitus type 2 Morbid obesity Consult obtained from cardiology Serial troponins ordered, echocardiogram ordered CT chest negative for pulmonary embolism In regards to diabetes, Accu-Cheks before meals at bedtime continue metformin, correctional insulin ordered * * * Add aspirin 81 mg daily, atorvastatin 40 mg at night, farxiga 10mg daily, metoprolol succinate 25 mg daily, and Entresto 24-26mg BID Give 1 dose of IV lasix 40mg now and then continue oral lasix Patient needs outpatient follow-up with Dr. Daigle and set up for AMANDA to evaluate severe mitral regurgitation and left and right heart catheterization Patient Condition at Discharge: Fair Plan - Discharge Summary New Discharge Prescriptions: New Aspirin [Adult Low Dose Aspirin EC] 81 mg PO DAILY #90 tab Sacubitril/Valsartan [Entresto 24 mg-26 mg Tablet] 1 each PO BID 30 Days #60 tab Dapagliflozin Propanediol [Farxiga] 10 mg PO DAILY #90 tab Atorvastatin [Lipitor] 40 mg PO HS #90 tab Furosemide [Lasix] 40 mg PO DAILY #30 tab Metoprolol Succinate (ER) [Toprol XL] 25 mg PO DAILY 60 Days #60 tab Continue metFORMIN HCL [Glucophage] 500 mg PO DIRECTED glipiZIDE [Glucotrol] 5 mg PO DIRECTED Pioglitazone [Actos] 15 mg PO DIRECTED Discharge Medication List Pioglitazone [Actos] 15 mg PO DIRECTED 11/09/22 [History] glipiZIDE [Glucotrol] 5 mg PO DIRECTED 11/09/22 [History] metFORMIN HCL [Glucophage] 500 mg PO DIRECTED 11/09/22 [History] Aspirin [Adult Low Dose Aspirin EC] 81 mg PO DAILY #90 tab 11/11/22 [Rx] Atorvastatin [Lipitor] 40 mg PO HS #90 tab 11/11/22 [Rx] Dapagliflozin Propanediol [Farxiga] 10 mg PO DAILY #90 tab 11/11/22 [Rx] Furosemide [Lasix] 40 mg PO DAILY #30 tab 11/11/22 [Rx] Metoprolol Succinate (ER) [Toprol XL] 25 mg PO DAILY 60 Days #60 tab 11/11/22 [Rx] Sacubitril/Valsartan [Entresto 24 mg-26 mg Tablet] 1 each PO BID 30 Days #60 tab 11/11/22 [Rx] Follow up Appointment(s)/Referral(s): Lev Clement MD [STAFF PHYSICIAN] - 1-2 days Patient Instructions/Handouts: Heart Failure (DC), Low-Sodium Diet (DC) Discharge Disposition: HOME SELF-CARE
== END 2022-11-11 14:26 | disposition home or self-care (01) ==
LOC: EC 20:27 → 6NMEDSUR 11-09 01:05
PROVIDERS: ADMIT Hospitalist; ATTEND Hospitalist
DX: R06.02 Shortness of breath (principal); E11.9 Type 2 diabetes mellitus without complications; E78.5 Hyperlipidemia, unspecified; I11.0 Hypertensive heart disease with heart failure; I50.21 Acute systolic (congestive) heart failure; I42.9 Cardiomyopathy, unspecified; I34.0 Nonrheumatic mitral (valve) insufficiency; I27.20 Pulmonary hypertension, unspecified; E66.01 Morbid (severe) obesity due to excess calories; Z68.41 Body mass index [BMI] 40.0-44.9, adult; Z86.16 Personal history of COVID-19; Z20.822 Contact with and (suspected) exposure to COVID-19; Z79.84 Long term (current) use of oral hypoglycemic drugs; Z79.82 Long term (current) use of aspirin; Z79.899 Other long term (current) drug therapy; Z82.49 Family history of ischemic heart disease and other diseases of the circulatory system
CPT/HCPCS: 96361 ×3; 96372 ×4; 96374; 99285; 36415; 93005; 93306; 85379; 83880; 80061; 80053; 80048 ×2; 84484 ×2; 85025; 85027; 85610; 85730; 83036; 87636; 71046; 71275; G0378 ×3; J1940; Q9950; Q9967

== ENCOUNTER 2022-11-27 05:52 | Day surgery (SDC) | payer BC ==
[2022-11-21 12:36] VITALS: BMI 41.5
[2022-11-27] MEDS ORDERED: HEPARIN SODIUM,PORCINE 10,000 UNIT in SODIUM CHLORIDE 0.9% 1,000 ML IRRIGATION PRN (06:01)
[2022-11-27] MEDS ORDERED: ALPRAZolam 0.25 MG TAB PO PRN (06:01)
[2022-11-27] MEDS ORDERED: NITROGLYCERIN SL TABS 0.4 MG TAB SUBLINGUAL PRN (06:01)
[2022-11-27] MEDS ORDERED: ALPRAZolam 0.5 MG TAB PO PRN (06:01)
[2022-11-27] MEDS ORDERED: HEPARIN SODIUM,PORCINE (1 ML) 2,500 UNIT in SODIUM CHLORIDE 0.9% 250 ML IRRIGATION PRN (06:01)
[2022-11-27] MEDS ORDERED: SODIUM CHLORIDE 0.9% 1,000 ML in EMPTY BAG 1 BAG IV SCH (06:01)
[2022-11-27] MEDS ORDERED: SODIUM CHLORIDE 0.9% 1,000 ML IV ONE (06:18)
[2022-11-27 06:44] LABS: Glucose,Whole Blood 184 mg/dL (70-110)
[2022-11-27 06:50] VITALS: TEMP 97.5
[2022-11-27] MEDS ORDERED: ATORVASTATIN 80 MG TAB PO ONE (07:00)
[2022-11-27] MEDS ORDERED: ASPIRIN 325 MG TAB PO ONE (07:00)
[2022-11-27] MEDS ORDERED: VERAPAMIL 2.5 MG/ML 2 ML AMP ONE (07:13)
[2022-11-27] MEDS ORDERED: LIDOCAINE 1% INJ 10MG/ML (20 ML MDV) ONE (07:13)
[2022-11-27] MEDS ORDERED: HEPARIN SODIUM 1,000 UN/ML (10ML VL) ONE (07:26)
[2022-11-27] MEDS ORDERED: fentaNYL (PF) 50 MCG/ML 2 ML AMP ONE (07:27)
[2022-11-27] MEDS ORDERED: fentaNYL (PF) 50 MCG/1 ML VIAL IVP ONE (07:30)
[2022-11-27] MEDS ORDERED: LIDOCAINE 1% INJ 10MG/ML (20 ML MDV) SQ ONE (07:33)
[2022-11-27] MEDS ORDERED: MIDAZOLAM 2 MG/2 ML VIAL IVP ONE (07:34)
[2022-11-27] MEDS ORDERED: VERAPAMIL SYRINGE (5 MG/10 ML) INTRAARTER ONE (07:34)
[2022-11-27] MEDS ORDERED: HEPARIN SODIUM 1,000 UN/ML (10ML VL) IV ONE (07:54)
[2022-11-27] MEDS ORDERED: IOPAMIDOL-370 100ML BTL INJ ONE (08:02)
[2022-11-27 08:10] LABS: O2 Sat Blood Gas 64.1 %
[2022-11-27 08:12] LABS: O2 Sat Blood Gas 96.8 %
[2022-11-27 08:13] LABS: O2 Sat Blood Gas 65.9 %
[2022-11-27] MEDS ORDERED: RX INFO: IV CONTRAST WAS GIVEN 1 EACH MISC MISCELLANE PRN (08:14)
[2022-11-27] MEDS ORDERED: SODIUM CHLORIDE 0.9% 1,000 ML IV SCH (08:15)
--- NOTE | 2022-11-27 08:22 | P.CARDCATH ---
Date of Procedure: 11/27/22 Description of Procedure: Cardiac Catheterization: The patient is a 57-year-old male with known history of hypertension, hyperlipidemia and diabetes who presented with symptoms of dyspnea and was found to have severe cardiomyopathy. Recommendations were made regarding cardiac catheterization, the risks and the complications were discussed with the patient who is in full understanding and agreement. 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 Using Xylocaine Anesthesia and modified Seldinger technique, a 6-Mauritian sheath was introduced in the right radial artery . The venous sheath in the right basilic vein was exchanged over a guidewire to a 6-Mauritian sheath. Right heart catheterization was performed using a Waggoner-Charlie catheter, multiple samples and pressures were obtained. Cardiac output by thermodilution was calculated. Subsequently, selective coronary angiography was performed using a 5-Mauritian 3.5 bend Jj catheter. Multiple views of the coronary artery including hemiaxial views were obtained. The 5-Mauritian pigtail catheter was used to cross the aortic valve and LVEDP was calculated. Left ventriculogram in the ART view was obtained. Following that, catheter and sheath were removed. Hemostasis was obtained with deployment of vascular band . There was no immediate complication. Patient was returned to room in stable condition. Of note, the patient received a total of 5000 units of intravenous heparin as well as intra-arterial verapamil. Findings: Left main: This is a large size vessel, bifurcating into LAD and left circumflex, left main has no obstructive disease LAD: This is a large-sized vessel giving rise to a large diagonal branch, the LAD and its branches have no obstructive disease Left circumflex: This is a large nondominant vessel giving rise to a proximal obtuse marginal branch and a distal branch, the left circumflex has no obstructive disease RCA: This is a large dominant vessel bifurcating distally into PDA and PLV the mid right coronary artery has 20-30% plaque with no high-grade stenosis. Left Ventriculogram: Performed in the ART view revealed global hypokinesis the estimated ejection fraction 30-35% with 2-3+ mitral regurgitation. Hemodynamics: Right atrial saturation 64%, pulmonary artery 66%, arterial 97%. Cardiac output by Juanita 5.3 L/m and by thermal 7-year-old permanent. Pulmonary artery systolic pressure of 46, diastolic 30 with a mean of 37 mmHg. Pulmonary capillary wedge pressure A wave of 20, V wave of 20 with a mean of 20 minutes of mercury. Right ventricle systolic of 44 with an end-diastolic of 10 mmHg. Right atrium A wave of 9, V wave of 8 with a mean of 8 mmHg., LVEDP was 25-30 mmHg Conclusion: 1. Mild disease in the mid RCA 2. Moderate pulmonary hypertension 3. Severely impaired left ventricular systolic function 4. 2-3+ mitral regurgitation Recommendations: The patient will continue on maximum medical therapy for cardiomyopathy and have reevaluation of his left ventricle systolic function and mitral regurgitation and depending on his progress recommendations will be made. The findings and the recommendations were discussed with the patient and the family and they were in full understanding and agreement. Duration of sedation is 34 minutes.
[2022-11-27] MEDS ORDERED: glipiZIDE 5 MG TAB PO SCH (09:00)
[2022-11-27] MEDS ORDERED: DAPAGLIFLOZIN PROPANEDIOL 10 MG TABLET PO SCH (09:00)
[2022-11-27] MEDS ORDERED: SACUBITRIL/VALSARTAN 24 MG-26 MG TABLET PO SCH (09:00)
[2022-11-27] MEDS ORDERED: METOPROLOL SUCCINATE (ER) 25 MG TAB.ER.24H PO SCH (09:00)
[2022-11-27 09:14] VITALS: RESP 16
[2022-11-27 11:55] VITALS: BP 145/82; PULSE 75
[2022-11-27] MEDS ORDERED: ATORVASTATIN 40 MG TAB PO SCH (21:00)
[2022-11-28] MEDS ORDERED: ASPIRIN 81 MG PO SCH (09:00)
== END 2022-11-27 11:50 | disposition home or self-care (01) ==
LOC: CATHCVL 05:52
PROVIDERS: ATTEND Internal Medicine Interventional Cardiology
DX: I34.0 Nonrheumatic mitral (valve) insufficiency (principal); I27.20 Pulmonary hypertension, unspecified; I11.0 Hypertensive heart disease with heart failure; I50.9 Heart failure, unspecified; E78.5 Hyperlipidemia, unspecified; I42.8 Other cardiomyopathies; E11.9 Type 2 diabetes mellitus without complications; F15.90 Other stimulant use, unspecified, uncomplicated; Z87.891 Personal history of nicotine dependence; Z79.82 Long term (current) use of aspirin; Z79.84 Long term (current) use of oral hypoglycemic drugs; Z79.899 Other long term (current) drug therapy
CPT/HCPCS: 93460; 85018; 82810; C1769 ×2; C1894; C1751; J2250; J2001; J1644; Q9967; J3010

== ENCOUNTER → 2022-12-27 | Outpatient (CLI) | payer BC ==
[2022-12-27 15:03] LABS: NT-Pro-B-Type Natriuretic Pept 206 pg/mL
[2022-12-28 02:03] LABS: Blood Urea Nitrogen 21.1 mg/dL (9.0-27.0); Calcium 9.4 mg/dL (8.7-10.3); Carbon Dioxide 28.6 mmol/L (21.6-31.8); Chloride 102 mmol/L (96-109); Glucose 194 mg/dL (70-110); Potassium 4.6 mmol/L (3.5-5.5); Sodium 142 mmol/L (135-145)
== END | disposition home or self-care (01) ==
LOC: LABWHC1 13:36
PROVIDERS: ATTEND Internal Medicine Interventional Cardiology
DX: I42.8 Other cardiomyopathies (principal); I50.32 Chronic diastolic (congestive) heart failure
CPT/HCPCS: 36415; 80048; 83880

== ENCOUNTER 2023-07-30 11:50 | Observation (INO) | payer BC ==
--- NOTE | 2023-07-30 12:30 | ED ---
Chest Pain HPI - General Source: patient, RN notes reviewed Mode of arrival: wheelchair Limitations: no limitations <Janet Humphreys - Last Filed: 07/30/23 12:28> <Mj Whalen - Last Filed: 07/30/23 16:49> - General Chief Complaint: Chest Pain Stated Complaint: Chest pain Time Seen by Provider: 07/30/23 12:15 - History of Present Illness Initial Comments: Quick Note- This is a 57 year old male with a past medical history of heart failure who presents to the ED with chief complaint of epigastric and chest d iscomfort over the past 6 hours. He endorses nausea. Denies heart palpitations, dizziness, lightheadedness. Denies history of NV or CVA. (Janet Humphreys) This is a 57-year-old male with a past medical history significant for diabetes heart failure and high cholesterol. Patient states since last night he has not been feeling well he describes a gnawing sensation in his chest and epigastric region since last evening. Patient states that has come and gone but it is much worse today than it was yesterday. Patient denies any radiation of the pain. Patient has any difficulty breathing shortness of breath. Patient states he has been nauseous but has not vomited. Patient Nuys any recent fever chills or cough. Patient denies any back pain currently. Patient denies any headache patient denies numbness weakness. Patient denies any history of NV or CVA. Patient states his father had a heart attack. Patient denies smoking (Mj Whalen) - Related Data Home Medications Medication Instructions Recorded Confirmed glipiZIDE [Glucotrol] 5 mg PO DAILY 11/09/22 11/27/22 metFORMIN HCL [Glucophage] 500 mg PO DAILY 11/09/22 11/27/22 Previous Rx's Medication Instructions Recorded Aspirin [Adult Low Dose Aspirin EC] 81 mg PO DAILY #90 tab 11/11/22 Atorvastatin [Lipitor] 40 mg PO HS #90 tab 11/11/22 Dapagliflozin Propanediol [Farxiga] 10 mg PO DAILY #90 tab 11/11/22 Furosemide [Lasix] 40 mg PO DAILY #30 tab 11/11/22 Metoprolol Succinate (ER) [Toprol 25 mg PO DAILY 60 Days #60 tab 11/11/22 XL] Sacubitril/Valsartan [Entresto 24 1 each PO BID 30 Days #60 tab 11/11/22 mg-26 mg Tablet] Allergies Allergy/AdvReac Type Severity Reaction Status Date / Time No Known Allergies Allergy Verified 07/30/23 12:02 Review of Systems ROS Other: All systems not noted in ROS Statement are negative. <Janet Humphreys - Last Filed: 07/30/23 12:28> ROS Other: All systems not noted in ROS Statement are negative. <Mj Whalen - Last Filed: 07/30/23 16:49> ROS Statement: Those systems with pertinent positive or pertinent negative responses have been documented in the HPI. Past Medical History Past Medical History: Heart Failure, Diabetes Mellitus, Hyperlipidemia, Hypertension, Osteoarthritis (OA) Additional Past Medical History / Comment(s): MIGRAINES, "borderline high BP"-no rx, arthritis in hands, RECENT ADMISSION FOR HEART FAILURE-11/08/22 History of Any Multi-Drug Resistant Organisms: None Reported Past Surgical History: Hernia Repair, Tonsillectomy Additional Past Surgical History / Comment(s): umbilical hernia repair, sinus polypectomy x2, Past Anesthesia/Blood Transfusion Reactions: Family History of Problems w/ Anesthesia Additional Past Anesthesia/Blood Transfusion Reaction / Comment(s): mother- problems with high BP/breathing problerms Past Psychological History: No Psychological Hx Reported Smoking Status: Never smoker Past Alcohol Use History: None Reported Past Drug Use History: None Reported - Past Family History Father Family Medical History: Cancer <Janet Humphreys - Last Filed: 07/30/23 12:28> General Exam Limitations: no limitations <Janet Humphreys - Last Filed: 07/30/23 12:28> <Mj Whalen - Last Filed: 07/30/23 16:49> - General Exam Comments Initial Comments: Visual Physical Exam Vital signs reviewed General: Well-appearing, nontoxic, no acute distress. Head: Normocephalic, atraumatic Eyes: PERRLA, EOMI ENT: Airway patent Chest: Nonlabored breathing Skin: No visual rash, normal skin tone Neuro: Alert and oriented 3 Musculoskeletal: No gross abnormalities (Janet Humphreys) GENERAL: Patient is well-developed and well-nourished. Patient is nontoxic and well- hydrated and is in mild distress. ENT: Neck is soft and supple. No significant lymphadenopathy is noted. Oropharynx is clear. Moist mucous membranes. Neck has full range of motion without eliciting any pain. EYES: The sclera were anicteric and conjunctiva were pink and moist. Extraocular movements were intact and pupils were equal round and reactive to light. Eyelids were unremarkable. PULMONARY: Unlabored respirations. Good breath sounds bilaterally. No audible rales rhonchi or wheezing was noted. CARDIOVASCULAR: There is a regular rate and rhythm without any murmurs gallops or rubs. ABDOMEN: Soft and nontender with normal bowel sounds. SKIN: Skin is clear with no lesions or rashes and otherwise unremarkable. NEUROLOGIC: Patient is alert and oriented x3. Cranial nerves II through XII are grossly intact. Motor and sensory are also intact. Normal speech, volume and content. Symmetrical smile. MUSCULOSKELETAL: Normal extremities with adequate strength and full range of motion. LYMPHATICS: No significant lymphadenopathy is noted PSYCHIATRIC: Normal psychiatric evaluation. (Mj Whalen) Course Vital Signs 07/30/23 07/30/23 11:58 16:37 Temperature 97.5 F L Pulse Rate 58 L 59 L Respiratory 18 16 Rate Blood Pressure 124/77 113/76 O2 Sat by Pulse 96 96 Oximetry Chest Pain MDM <Janet Humphreys - Last Filed: 07/30/23 12:28> <Mj Whalen - Last Filed: 07/30/23 16:49> - MDM I completed the quick note portion of this chart signed Janet Humphreys PA-C (Janet Humphreys) EKG was interpreted by myself. EKG shows sinus bradycardia 54 bpm parables 129 QRS 125 QT interval is 457 QTc is 443. Patient's EKG shows no ST segment elevation or depression. Was pt. sent in by a medical professional or institution (PATRICE Dolan, PLASMA PROCESSING CENTRIFUGE OPERATOR, urgent care, hospital, or halfway...) When possible be specific @ -No Did you speak to anyone other than the patient for history (EMS, parent, family, police, friend...)? What history was obtained from this source @ -No Did you review nursing and triage notes (agree or disagree)? Why? @ -I reviewed and agree with nursing and triage notes Were old charts reviewed (outside hosp., previous admission, EMS record, old EKG, old radiological studies, urgent care reports/EKG's, halfway records)? Report findings @ -No old charts were reviewed Differential Diagnosis (chest pain, altered mental status, abdominal pain women, abdominal pain men, vaginal bleeding, weakness, fever, dyspnea, syncope, headache, dizziness, GI bleed, back pain, seizure, CVA, palpatations, mental health, musculoskeletal)? @ -Differential Chest Pain: Stable Angina, Unstable Angina, STEMI, NSTEMI Aortic Dissection, Pneumothorax, Musculoskeletal, Esophageal Spasm GERD, Cholecystitis, Pancreatitis, Zoster, this is not meant to be an all-inclusive list. EKG interpreted by me (3pts min.). @ -As above X-rays interpreted by me (1pt min.). @ -Chest x-ray shows no acute normality CT interpreted by me (1pt min.). @ -None done U/S interpreted by me (1pt. min.). @ -None done What testing was considered but not performed or refused? (CT, X-rays, U/S, labs)? Why? @ -None What meds were considered but not given or refused? Why? @ -None Did you discuss the management of the patient with other professionals (professionals i.e. , PA, PLASMA PROCESSING CENTRIFUGE OPERATOR, lab, RT, psych nurse, social work instructor, experimental physicist, teacher, parole or probation officer, geriatric case manager)? Give summary @ -[facility] I wrote admitting orders I consulted cardiology Was smoking cessation discussed for >3mins.? @ -No Was critical care preformed (if so, how long)? @ -No Were there social determinants of health that impacted care today? How? (Homelessness, low income, unemployed, alcoholism, drug addiction, transportation, low edu. Level, literacy, decrease access to med. care, group home, rehab)? @ -No Was there de-escalation of care discussed even if they declined (Discuss DNR or withdrawal of care, Hospice)? DNR status @ -No What co-morbidities impacted this encounter? (DM, HTN, Smoking, COPD, CAD, Cancer, CVA, ARF, Chemo, Hep., AIDS, mental health diagnosis, sleep apnea, morbid obesity)? @ -None Was patient admitted / discharged? Hospital course, mention meds given and route, prescriptions, significant lab abnormalities, going to OR and other pertinent info. @ -Patient was given Nitropaste and aspirin the emergency department he stated shortly thereafter the pain went away completely. Initial lab work and x-rays were within normal range I spoke with [facility] hospitalist they agreed to admit the patient admit the patient wrote admitting orders and consult cardiology Undiagnosed new problem with uncertain prognosis? @ -No Drug Therapy requiring intensive monitoring for toxicity (Heparin, Nitro, Insulin, Cardizem)? @ -No Were any procedures done? @ -No Diagnosis/symptom? @ -Default Acute, or Chronic, or Acute on Chronic? @ -Chest pain acute Uncomplicated (without systemic symptoms) or Complicated (systemic symptoms)? @ -Complicated Side effects of treatment? @ -No Exacerbation, Progression, or Severe Exacerbation? @ -No Poses a threat to life or bodily function? How? (Chest pain, USA, NV, pneumonia, PE, COPD, DKA, ARF, appy, cholecystitis, CVA, Diverticulitis, Homicidal, Suicidal, threat to staff... and all critical care pts) @ -Yes this can lead to an NV and endorgan dysfunction (Mj Whalen) Disposition <Janet Humphreys - Last Filed: 07/30/23 12:28> Time of Disposition: 16:49 <Mj Whalen - Last Filed: 07/30/23 16:49> Clinical Impression: Chest pain Disposition: ADMITTED IP TO THIS HOSP Referrals: Immanuel Clement MD [Primary Care Provider] - 1-2 days
--- NOTE | 2023-07-30 13:10 | XR ---
EXAMINATION TYPE: XR chest 2V DATE OF EXAM: 07/30/2023 12:57 PM CLINICAL INDICATION:Male, 57 years old with history of Chest Pain; COMPARISON: Chest radiographs from 11/08/2022 TECHNIQUE: XR chest 2V Frontal and lateral views of the chest. FINDINGS: Lungs/Pleura: There is no evidence of pleural effusion, focal consolidation, or pneumothorax. Pulmonary vascularity: Unremarkable. Heart/mediastinum: Cardiomediastinal silhouette is unremarkable. Musculoskeletal: No acute osseous pathology. IMPRESSION: No acute cardiopulmonary disease/process.
[2023-07-30 14:50] LABS: Basophils # (A) 0.1 k/uL (0-0.2); Basophils % (A) 1 %; Eosinophils # (A) 0.1 k/uL (0-0.7); Eosinophils % (A) 0 %; HCT 51.7 % (39.0-53.0); HGB 16.4 gm/dL (13.0-17.5); Lymphocytes # (A) 1.7 k/uL (1.0-4.8); Lymphocytes % (A) 12 %; MCH 26.6 pg (25.0-35.0); MCHC 31.7 g/dL (31.0-37.0); MCV 83.8 fL (80.0-100.0); Mean Platelet Volume 8.3; Monocytes # (A) 0.6 k/uL (0-1.0); Monocytes % (A) 4 %; Neutrophils # (A) 11.4 k/uL (1.3-7.7); Neutrophils % (A) 81 %; Platelet Count 246 k/uL (150-450); RBC 6.17 m/uL (4.30-5.90); RDW 13.1 % (11.5-15.5)
[2023-07-30 15:00] LABS: ALT 20 U/L (4-49); AST 25 U/L (17-59); African American GFR (CKD) >90 (>60 ml/min/1.73 sqM); Albumin 4.5 g/dL (3.5-5.0); Alkaline Phosphatase 133 U/L (38-126); Anion Gap 7 mmol/L; Blood Urea Nitrogen 11 mg/dL (9-20); Calcium 9.4 mg/dL (8.4-10.2); Carbon Dioxide 28 mmol/L (22-30); Chloride 101 mmol/L (98-107); Glucose 272 mg/dL (74-99); Non-African American GFR(CKD) >90 (>60 ml/min/1.73 sqM); Potassium 4.5 mmol/L (3.5-5.1); Sodium 136 mmol/L (137-145); Total Bilirubin 1.5 mg/dL (0.2-1.3); Total Protein 7.4 g/dL (6.3-8.2)
[2023-07-30] MEDS: NITROGLYCERIN OINT 1 INCH/GM PACKET TOPICAL STA (15:00)
[2023-07-30] MEDS: ASPIRIN 81 MG PO STA (15:00)
[2023-07-30 15:01] LABS: Partial Thromboplastin Time 24.5 sec (22.0-30.0)
[2023-07-30 15:08] LABS: NT-Pro-B-Type Natriuretic Pept 174 pg/mL
[2023-07-30] MEDS ORDERED: NITROGLYCERIN SL TABS 0.4 MG TAB SUBLINGUAL PRN (16:49)
[2023-07-30] MEDS: NITROGLYCERIN OINT 1 INCH/GM PACKET TOPICAL SCH (20:07)
[2023-07-30 20:37] LABS: Glucose,Whole Blood 273 mg/dL (70-110)
[2023-07-30] MEDS ORDERED: DEXTROSE 50% SYRINGE 50 ML IVP PRN ×2 (22:09)
[2023-07-30] MEDS: SACUBITRIL/VALSARTAN 49 MG-51 MG TABLET PO SCH (23:12)
[2023-07-31 07:09] LABS: Glucose,Whole Blood 229 mg/dL (70-110)
[2023-07-31] MEDS: INSULIN ASPART (NovoLOG) 100 UNIT/ML VIAL SQ SCH (07:43)
[2023-07-31] MEDS ORDERED: ASPIRIN 325 MG TAB PO SCH (09:00)
[2023-07-31 09:14] LABS: Chol/HDL Ratio 5.23 Ratio; LDL Cholesterol,Calculated 64.5 mg/dL (0.0-131.0)
--- NOTE | 2023-07-31 09:33 | P.CRDCN ---
History of Present Illness History of present illness: HISTORY OF PRESENT ILLNESS: This is a 57-year-old male with a past medical history significant for mild CAD, nonischemic cardiomyopathy, hypertension, hyperlipidemia, diabetes, and obesity. Patient follows in the office with Dr. Daigle. We have been asked to see the patient in consultation for chest pain. Patient examined at the bedside. Patient states yesterday he had an " empty stomach feeling". He states that he felt queasy and described it as a similar sensation as to when your stomach feels upset if you have not eaten in a while. He states that he had that type of sensation in his abdomen and also in the lower part of his chest. He states this sensation lasted all day. He denies having any chest pain or pressure. Patient states he is feeling better today after he received Nitropaste and something to eat. Vital signs are stable. DIAGNOSTICS: - EKG reveals sinus mechanism with baseline artifact. - Chest xray negative for acute process. - Laboratory data: WBC 14.0. Hemoglobin 16.4. Platelet count 246. Sodium 136. Potassium 4.5. BUN 11. Creatinine 0.74. Hemoglobin A1c 12.2. Troponin negative x 3 - Current home cardiac medications include aspirin 81 mg daily, Lipitor 40 mg at night, Farxiga 10 mg daily, Lasix 40 mg daily, metoprolol succinate 25 mg daily, Entresto 49-51 mg twice a day, Aldactone 25 mg daily. - Most recent echocardiogram obtained in February 2023 revealed ejection fraction 32%, mild to moderate TR, moderate MR - Cardiac catheterization history: November 2022 revealing 30% mid RCA, right dominant system, moderate pulmonary hypertension, 2-3+ MR REVIEW OF SYSTEMS: At the time of my exam: CONSTITUTIONAL: Denies fever or chills. HEENT: Denies blurred vision, vision changes, or eye pain. Denies hemoptysis CARDIOVASCULAR: Denies chest pain. Denies orthopnea. Denies PND. Denies palpitations RESPIRATORY: Denies shortness of breath. GASTROINTESTINAL: Denies abdominal pain. Denies nausea or vomiting. HEMATOLOGIC: Denies bleeding disorders. GENITOURINARY: Denies any blood in urine. SKIN: Denies pruitis. Denies rash. PHYSICAL EXAM: VITAL SIGNS: Reviewed. GENERAL: Well-developed in no acute distress. HEENT: Head is normocephalic. Pupils are equal, round. Sclerae anicteric. Mucous membranes of the mouth are moist. Neck supple. No JVD or thyromegaly LUNGS: Respirations even and unlabored. Lungs essentially clear to auscultation bilaterally. HEART: Regular rate and rhythm. S1 and S2 heard. Systolic murmur noted ABDOMEN: Soft. Nondistended. Nontender. EXTREMITIES: Normal range of motion. No clubbing or cyanosis. Peripheral pulses intact. No lower extremity edema NEUROLOGIC: Awake and alert. Oriented x 3. ASSESSMENT: Atypical chest pain, troponin negative x 3 Leukocytosis, WBC 14 Diabetes, uncontrolled, hemoglobin A1c 12.2 Hypertension Hyperlipidemia Mild nonobstructive CAD Nonischemic cardiomyopathy, EF 32% Moderate pulmonary hypertension Moderate mitral regurgitation PLAN: An acute coronary event has been ruled out Obtain 2D echo to assess cardiac structure and function Resume home cardiac medications No plans for inpatient stress testing at this time Possible further workup of leukocytosis per internal medicine Possible outpatient stress testing No further inpatient recommendations from a cardiac standpoint Patient to follow-up postdischarge with Dr. Daigle Nurse practitioner note has been reviewed by physician. Signing provider agrees with the documented findings, assessment, and plan of care documented by HAND CLOTH FOLDER as a scribe. Past Medical History Past Medical History: Heart Failure, Diabetes Mellitus, Hyperlipidemia, Hypertension, Osteoarthritis (OA) Additional Past Medical History / Comment(s): MIGRAINES, "borderline high BP"-no rx, arthritis in hands, RECENT ADMISSION FOR HEART FAILURE-11/08/22 History of Any Multi-Drug Resistant Organisms: None Reported Past Surgical History: Hernia Repair, Tonsillectomy Additional Past Surgical History / Comment(s): umbilical hernia repair, sinus polypectomy x2, Past Anesthesia/Blood Transfusion Reactions: Family History of Problems w/ Anesthesia Additional Past Anesthesia/Blood Transfusion Reaction / Comment(s): mother- problems with high BP/breathing problerms Past Psychological History: No Psychological Hx Reported Smoking Status: Never smoker Past Alcohol Use History: None Reported Past Drug Use History: None Reported - Past Family History Father Family Medical History: Cancer Medications and Allergies Home Medications Medication Instructions Recorded Confirmed Type metFORMIN HCL [Glucophage] 500 mg PO DAILY 11/09/22 07/30/23 History Aspirin [Adult Low Dose Aspirin EC] 81 mg PO DAILY #90 tab 11/11/22 07/30/23 Rx Atorvastatin [Lipitor] 40 mg PO HS #90 tab 11/11/22 07/30/23 Rx Dapagliflozin Propanediol [Farxiga] 10 mg PO DAILY #90 tab 11/11/22 07/30/23 Rx Furosemide [Lasix] 40 mg PO DAILY #30 tab 11/11/22 07/30/23 Rx Metoprolol Succinate (ER) [Toprol 25 mg PO DAILY 60 Days #60 tab 11/11/22 07/30/23 Rx XL] Sacubitril/Valsartan [Entresto 49 1 tab PO BID 07/30/23 07/30/23 History mg-51 mg Tablet] Spironolactone [Aldactone] 25 mg PO DAILY 07/30/23 07/30/23 History Allergies Allergy/AdvReac Type Severity Reaction Status Date / Time No Known Allergies Allergy Verified 07/30/23 16:49 Physical Exam Vitals: Vital Signs Temp Pulse Pulse Resp BP BP Pulse Ox 07/31/23 07:00 97.8 F 51 L 16 112/69 98 07/31/23 02:00 50 L 18 101/53 98 07/30/23 20:00 58 L 18 07/30/23 19:59 98 F 58 L 18 114/75 99 07/30/23 18:00 61 16 121/74 97 07/30/23 16:37 59 L 16 113/76 96 07/30/23 11:58 97.5 F L 58 L 18 124/77 96 Intake and Output 07/30/23 07/31/23 07/31/23 22:59 06:59 14:59 Intake Total 350 Balance 350 Intake: Oral 350 Other: Voiding Method Toilet # Voids 1 2 Weight 132.812 kg Results 07/30/23 14:32 07/30/23 14:32 Cardiac Enzymes 07/30/23 07/30/23 07/30/23 Range/Units 14:32 14:32 18:16 AST 25 (17-59) U/L Troponin I <0.012 <0.012 (0.000-0.034) ng/mL 07/30/23 Range/Units 21:18 AST (17-59) U/L Troponin I <0.012 (0.000-0.034) ng/mL Coagulation 07/30/23 Range/Units 14:32 PT 11.0 (10.0-12.5) sec APTT 24.5 (22.0-30.0) sec Lipids 07/31/23 Range/Units 05:56 Triglycerides 381.00 H (0.00-149.00) mg/dL Cholesterol 174.00 (0.00-200.00) mg/dL HDL Cholesterol 33.30 L (40.00-60.00) mg/dL Cholesterol/HDL Ratio 5.23 Ratio CBC 07/30/23 Range/Units 14:32 WBC 14.0 H (3.8-10.6) k/uL RBC 6.17 H (4.30-5.90) m/uL Hgb 16.4 (13.0-17.5) gm/dL Hct 51.7 (39.0-53.0) % Plt Count 246 (150-450) k/uL Comprehensive Metabolic Panel 07/30/23 Range/Units 14:32 Sodium 136 L (137-145) mmol/L Potassium 4.5 (3.5-5.1) mmol/L Chloride 101 (98-107) mmol/L Carbon Dioxide 28 (22-30) mmol/L BUN 11 (9-20) mg/dL Creatinine 0.74 (0.66-1.25) mg/dL Glucose 272 H (74-99) mg/dL Calcium 9.4 (8.4-10.2) mg/dL AST 25 (17-59) U/L ALT 20 (4-49) U/L Alkaline Phosphatase 133 H (38-126) U/L Total Protein 7.4 (6.3-8.2) g/dL Albumin 4.5 (3.5-5.0) g/dL Current Medications Generic Name Dose Route Start Last Admin Trade Name Freq PRN Reason Stop Dose Admin Aspirin 81 mg 07/31/23 09:00 Aspirin 81 Mg PO DAILY [facility] Atorvastatin Calcium 40 mg 07/31/23 21:00 Atorvastatin 40 Mg Tab PO HS [facility] Dapagliflozin 10 mg 07/31/23 09:00 Dapagliflozin Propanediol 10 Mg Tablet PO DAILY [facility] Dextrose/Water 25 ml 07/30/23 22:09 Dextrose 50% Syringe 50 Ml IVP PER PROTOCOL PRN Hypoglycemia Protocol Dextrose/Water 50 ml 07/30/23 22:09 Dextrose 50% Syringe 50 Ml IVP PER PROTOCOL PRN Hypoglycemia Protocol Furosemide 40 mg 07/31/23 09:00 Furosemide 40 Mg Tab PO DAILY [facility] Insulin Aspart 0 unit 07/31/23 07:30 07/31/23 07:43 Insulin Aspart (Novolog) 100 Unit/Ml Vial SQ Not Given ACHS [facility] Protocol Metoprolol Succinate 25 mg 07/31/23 09:00 Metoprolol Succinate (Er) 25 Mg Tab.Er.24h PO DAILY [facility] Nitroglycerin 0.4 mg 07/30/23 16:49 Nitroglycerin Sl Tabs 0.4 Mg Tab SUBLINGUAL Q5M PRN Chest Pain Sacubitril/Valsartan 1 each 07/30/23 22:15 07/30/23 23:12 Sacubitril/Valsartan 49 Mg-51 Mg Tablet PO 1 each BID [facility] Administration Spironolactone 25 mg 07/31/23 09:00 Spironolactone 25 Mg Tab PO DAILY [facility] Intake and Output 07/30/23 07/31/23 07/31/23 22:59 06:59 14:59 Intake Total 350 Balance 350 Intake: Oral 350 Other: Voiding Method Toilet # Voids 1 2 Weight 132.812 kg 07/30/23 14:32 07/30/23 14:32
[2023-07-31] MEDS: DAPAGLIFLOZIN PROPANEDIOL 10 MG TABLET PO SCH (10:07)
[2023-07-31] MEDS: METOPROLOL SUCCINATE (ER) 25 MG TAB.ER.24H PO SCH (10:07)
[2023-07-31] MEDS: FUROSEMIDE 40 MG TAB PO SCH (10:08)
[2023-07-31] MEDS: ASPIRIN 81 MG PO SCH (10:08)
[2023-07-31] MEDS: SPIRONOLACTONE 25 MG TAB PO SCH (10:08)
--- NOTE | 2023-07-31 12:29 | P.HPIM ---
History of Present Illness H&P Date: 07/31/23 History of present illness; patient 57-year-old gentleman past medical history significant for hypertension, hyperlipidemia, [facility] to the ER because of epigastric pain. Patient stated that he was all right 1 day back when started experiencing discomfort in his chest and epigastric area, pain was pressure- like, nonradiating, intermittent, no aggravating or relieving factor associated with this chest pressure. There was no complaint of shortness of breath. Patient did complain of nausea but no vomiting. There is no complaint of fever or chills. Because of chest pain, patient came to the ER Initial lab work done in the ER showed WBC 14, hemoglobin 16.4, platelet count 246, sodium 138, potassium 4.5, BUN 11, creatinine 0.74 bilirubin 1.5, AST 25, ALT 20, troponin 0.012 EKG done in the ER showed heart rate of 54, no ST segment elevation or depression seen, no T-wave inversions seen. Chest x-ray done in the ER showed no acute cardiopulmonary process Patient admitted to internal medicine service REVIEW OF SYSTEMS: CONSTITUTIONAL: No fever, no malaise, no fatigue. HEENT: No recent visual problems or hearing problems. Denied any sore throat. CARDIOVASCULAR: As mentioned above PULMONARY: As mentioned above GASTROINTESTINAL: No diarrhea, no nausea, no vomiting, no abdominal pain. NEUROLOGICAL: No headaches, no weakness, no numbness. HEMATOLOGICAL: Denies any bleeding or petechiae. GENITOURINARY: Denies any burning micturition, frequency, or urgency. MUSCULOSKELETAL/RHEUMATOLOGICAL: Denies any joint pain, swelling, or any muscle pain. ENDOCRINE: Denies any polyuria or polydipsia. The rest of the 14-point review of systems is negative. PHYSICAL EXAMINATION: GENERAL: The patient is alert and oriented x3, not in any acute distress. Well developed, well nourished. HEENT: Pupils are round and equally reacting to light. EOMI. No scleral icterus. No conjunctival pallor. Normocephalic, atraumatic. No pharyngeal erythema. No thyromegaly. CARDIOVASCULAR: S1 and S2 present. No murmurs, rubs, or gallops. PULMONARY: Chest is clear to auscultation, no wheezing or crackles. ABDOMEN: Soft, nontender, nondistended, normoactive bowel sounds. No palpable organomegaly. MUSCULOSKELETAL: No joint swelling or deformity. EXTREMITIES: No cyanosis, clubbing, or pedal edema. NEUROLOGICAL: Gross neurological examination did not reveal any focal deficits. SKIN: No rashes. Assessment and plan Chest pain, rule out acute coronary syndrome Leukocytosis Diabetes, uncontrolled, hemoglobin A1c 12.2 Hypertension Hyperlipidemia Mild nonobstructive CAD Nonischemic cardiomyopathy, EF 32% Monitor vital signs Monitor CBC Monitor CMP Continue telemetry monitoring Trend troponins. Ordered 2D echo Resume home meds consult cardiology Labs and medication were reviewed.. Continue same treatment. Continue with symptomatic treatment. Resume home medication. Monitor labs and vitals. DVT and GI prophylaxis. Further recommendations as per clinical course of the patient Dictation was produced using [employer] dictation software. please excuse any grammatical, word or spelling errors. Past Medical History Past Medical History: Heart Failure, Diabetes Mellitus, Hyperlipidemia, Hypertension, Osteoarthritis (OA) Additional Past Medical History / Comment(s): MIGRAINES, "borderline high BP"-no rx, arthritis in hands, RECENT ADMISSION FOR HEART FAILURE-11/08/22 History of Any Multi-Drug Resistant Organisms: None Reported Past Surgical History: Hernia Repair, Tonsillectomy Additional Past Surgical History / Comment(s): umbilical hernia repair, sinus polypectomy x2, Past Anesthesia/Blood Transfusion Reactions: Family History of Problems w/ Anesthesia Additional Past Anesthesia/Blood Transfusion Reaction / Comment(s): mother- problems with high BP/breathing problerms Past Psychological History: No Psychological Hx Reported Smoking Status: Never smoker Past Alcohol Use History: None Reported Past Drug Use History: None Reported - Past Family History Father Family Medical History: Cancer Medications and Allergies Home Medications Medication Instructions Recorded Confirmed Type metFORMIN HCL [Glucophage] 500 mg PO DAILY 11/09/22 07/30/23 History Aspirin [Adult Low Dose Aspirin EC] 81 mg PO DAILY #90 tab 11/11/22 07/30/23 Rx Atorvastatin [Lipitor] 40 mg PO HS #90 tab 11/11/22 07/30/23 Rx Dapagliflozin Propanediol [Farxiga] 10 mg PO DAILY #90 tab 11/11/22 07/30/23 Rx Furosemide [Lasix] 40 mg PO DAILY #30 tab 11/11/22 07/30/23 Rx Metoprolol Succinate (ER) [Toprol 25 mg PO DAILY 60 Days #60 tab 11/11/22 07/30/23 Rx XL] Sacubitril/Valsartan [Entresto 49 1 tab PO BID 07/30/23 07/30/23 History mg-51 mg Tablet] Spironolactone [Aldactone] 25 mg PO DAILY 07/30/23 07/30/23 History Allergies Allergy/AdvReac Type Severity Reaction Status Date / Time No Known Allergies Allergy Verified 07/30/23 16:49 Physical Exam Vitals: Vital Signs Temp Pulse Pulse Resp BP BP Pulse Ox 07/31/23 07:00 97.8 F 51 L 16 112/69 98 07/31/23 02:00 50 L 18 101/53 98 07/30/23 20:00 58 L 18 07/30/23 19:59 98 F 58 L 18 114/75 99 07/30/23 18:00 61 16 121/74 97 07/30/23 16:37 59 L 16 113/76 96 07/30/23 11:58 97.5 F L 58 L 18 124/77 96 Intake and Output 07/30/23 07/31/23 07/31/23 22:59 06:59 14:59 Intake Total 350 Balance 350 Intake: Oral 350 Other: Voiding Method Toilet # Voids 1 2 Weight 132.812 kg Results CBC & Chem 7: 07/30/23 14:32 07/30/23 14:32 Labs: Abnormal Lab Results - Last 24 Hours (Table) 07/30/23 07/30/23 07/30/23 Range/Units 14:32 14:32 20:36 WBC 14.0 H (3.8-10.6) k/uL RBC 6.17 H (4.30-5.90) m/uL Neutrophils # 11.4 H (1.3-7.7) k/uL Sodium 136 L (137-145) mmol/L Glucose 272 H (74-99) mg/dL POC Glucose (mg/dL) 273 H (70-110) mg/dL Hemoglobin A1c (<=6.0) % Total Bilirubin 1.5 H (0.2-1.3) mg/dL Alkaline Phosphatase 133 H (38-126) U/L Triglycerides (0.00-149.00) mg/dL VLDL Cholesterol, Calc (5.00-40.00) mg/dL HDL Cholesterol (40.00-60.00) mg/dL 07/31/23 07/31/23 07/31/23 Range/Units 05:56 05:56 07:07 WBC (3.8-10.6) k/uL RBC (4.30-5.90) m/uL Neutrophils # (1.3-7.7) k/uL Sodium (137-145) mmol/L Glucose (74-99) mg/dL POC Glucose (mg/dL) 229 H (70-110) mg/dL Hemoglobin A1c 12.2 H (<=6.0) % Total Bilirubin (0.2-1.3) mg/dL Alkaline Phosphatase (38-126) U/L Triglycerides 381.00 H (0.00-149.00) mg/dL VLDL Cholesterol, Calc 76.20 H (5.00-40.00) mg/dL HDL Cholesterol 33.30 L (40.00-60.00) mg/dL
[2023-07-31 15:16] VITALS: BP 106/53; PULSE 56; RESP 17; TEMP 97.9
[2023-07-31 16:35] LABS: Glucose,Whole Blood 300 mg/dL (70-110)
--- NOTE | 2023-07-31 17:36 | CA ---
Transthoracic Echo Report Name: Carlo Mccormack Age: 57 Gender: M : 1965 Exam Date: 07/31/2023 10:57 Exam Location: [facility] Ht (in): 71 Wt (lb): 292 Ordering Physician: Nadia Persaud Attending/Referring Phys: [id number], Hung Technical Solution Architect Yanique Gonzalez RDCS Procedure CPT: Indications: LV function, CP Cardiac Hx: Technical Quality: Very technically difficult study Contrast 1: Definity Total Dose (mL): 2 Contrast 2: Total Dose (mL): MEASUREMENTS (Male / Female) Normal Values 2D ECHO LA Volume 72.1 cm??? 18 - 58 / 22 - 52 cm??? LA Volume Index 27.4 cm???/m??? 16 - 28 cm???/m??? M-MODE Aortic Root Diameter MM 2.5 cm LA Systolic Diameter MM 4.0 cm LA Ao Ratio MM 1.6 DOPPLER AV Peak Velocity 180.5 cm/s AV Peak Gradient 13.0 mmHg AV Mean Velocity 124.2 cm/s AV Mean Gradient 6.9 mmHg AV Velocity Time Integral 35.5 cm AI Peak Velocity 353.9 cm/s AI Peak Gradient 50.1 mmHg AI Pressure Half Time 462.5 ms LVOT Peak Velocity 84.7 cm/s LVOT Peak Gradient 2.9 mmHg LVOT Velocity Time Integral 16.3 cm MV Area PHT 3.0 cm??? Mitral E Point Velocity 63.9 cm/s Mitral A Point Velocity 68.0 cm/s Mitral E to A Ratio 0.9 MV Deceleration Time 250.1 ms MV E' Velocity 5.6 cm/s Mitral E to MV E' Ratio 11.4 TR Peak Velocity 247.3 cm/s TR Peak Gradient 24.5 mmHg Right Ventricular Systolic Press 29.5 mmHg FINDINGS Left Ventricle Severely reduced global left ventricular systolic function. Left ventricular ejection fraction is estimated at 25-30 %. Right Ventricle Right ventricle not well visualized. Right Atrium Right atrium not well visualized. Left Atrium Moderately increased left atrial volume. Mildly increased left atrial area. Mitral Valve Mild mitral annular calcification. Moderate mitral regurgitation. Aortic Valve Aortic valve not well visualized. No aortic stenosis. No aortic regurgitation. Tricuspid Valve Mild tricuspid regurgitation. Pulmonic Valve Pulmonic valve not well visualized. Pericardium No pericardial effusion. Aorta Aortic root and proximal ascending aorta not well visualized. CONCLUSIONS Technically suboptimal study secondary to poor echo windows There is severe LV dysfunction Moderate mitral regurg to Previewed by: Dr. Manolo De Santiago MD (Electronically Signed) Final Date: 31 July 2023 17:35
[2023-07-31 19:46] LABS: Basophils # (A) 0.1 k/uL (0-0.2); Basophils % (A) 1 %; Eosinophils # (A) 0.2 k/uL (0-0.7); Eosinophils % (A) 2 %; HCT 48.7 % (39.0-53.0); HGB 15.3 gm/dL (13.0-17.5); Lymphocytes % (A) 28 %; MCH 26.6 pg (25.0-35.0); MCHC 31.4 g/dL (31.0-37.0); MCV 84.9 fL (80.0-100.0); Mean Platelet Volume 8.4; Monocytes # (A) 0.7 k/uL (0-1.0); Monocytes % (A) 7 %; Neutrophils # (A) 6.6 k/uL (1.3-7.7); Neutrophils % (A) 62 %; Platelet Count 224 k/uL (150-450); RBC 5.73 m/uL (4.30-5.90); WBC 10.8 k/uL (3.8-10.6)
[2023-07-31] MEDS ORDERED: ATORVASTATIN 40 MG TAB PO SCH (21:00)
== END 2023-07-31 20:53 | disposition home or self-care (01) ==
LOC: EC 11:50 → 6NMEDSUR 17:04 → 1SOBS 18:51
PROVIDERS: ADMIT Internal Medicine; ATTEND Internal Medicine
DX: R07.89 Other chest pain (principal); E11.65 Type 2 diabetes mellitus with hyperglycemia; I11.0 Hypertensive heart disease with heart failure; I50.9 Heart failure, unspecified; I27.20 Pulmonary hypertension, unspecified; I08.1 Rheumatic disorders of both mitral and tricuspid valves; E78.00 Pure hypercholesterolemia, unspecified; I25.10 Atherosclerotic heart disease of native coronary artery without angina pectoris; I42.8 Other cardiomyopathies; D72.829 Elevated white blood cell count, unspecified; R10.13 Epigastric pain; R11.0 Nausea; R00.1 Bradycardia, unspecified; E66.9 Obesity, unspecified; Z68.41 Body mass index [BMI] 40.0-44.9, adult; Z79.84 Long term (current) use of oral hypoglycemic drugs; Z79.82 Long term (current) use of aspirin; Z79.899 Other long term (current) drug therapy
CPT/HCPCS: 99285; 36415; 93005; 93306; 83880; 80061; 80053; 83735; 84484; 85025 ×2; 85610; 85730; 83036; 71046; G0378 ×3; Q9957

== ENCOUNTER → 2024-01-02 | Outpatient (CLI) | payer BC ==
[2024-01-02 21:25] LABS: ALT 14 U/L (10-49); AST 15 U/L (14-35); Albumin 3.9 g/dL (3.8-4.9); Albumin/Globulin Ratio 1.62 Ratio (1.60-3.17); Alkaline Phosphatase 93 U/L (41-126); BUN/Creat Ratio 13.33 Ratio (12.00-20.00); Calcium 8.9 mg/dL (8.7-10.3); Carbon Dioxide 27.2 mmol/L (21.6-31.8); Chloride 101 mmol/L (96-109); Chol/HDL Ratio 4.38 Ratio; Globulin 2.4 g/dL (1.6-3.3); Glucose 323 mg/dL (70-110); Potassium 4.6 mmol/L (3.5-5.5); Sodium 138 mmol/L (135-145); Total Bilirubin 0.7 mg/dL (0.3-1.2); Total Protein 6.3 g/dL (6.2-8.2)
[2024-01-02 23:22] LABS: NT-Pro-B-Type Natriuretic Pept 375 pg/mL (0-125)
== END | disposition home or self-care (01) ==
LOC: LABWHC1 15:43
PROVIDERS: ATTEND Internal Medicine Interventional Cardiology
DX: I42.8 Other cardiomyopathies (principal); E78.2 Mixed hyperlipidemia
CPT/HCPCS: 36415; 80053; 80061; 83880